=== PATIENT | male | born 1960 | race Caucasian/White ===

== ENCOUNTER → 2016-05-23 | Outpatient (CLI) | payer OTHER ==
[2016-05-23 12:18] LABS: EKG EKG PERFORMED
[2016-05-23 12:45] LABS: Appearance,Urine Clear (Clear); Bilirubin,Urine Negative (Negative); Glucose,Urine (UA) Negative (Negative); Ketones,Urine Negative (Negative); Leukocyte Esterase,Urine Negative (Negative); Nitrite,Urine Negative (Negative); Protein,Urine Negative (Negative); Specific Gravity,Urine 1.011 (1.001-1.035); UA Billing (MACRO vs. MICRO) CHEM; Urobilinogen,Urine <2.0 mg/dL (<2.0)
[2016-05-23 12:56] LABS: Basophils % (A) 1 %; CH 30.6; CHCM 35.3; Eosinophils # (A) 0.2 k/uL (0-0.7); Eosinophils % (A) 3 %; HCT 45.8 % (39.0-53.0); HDW 2.77; HGB 15.7 gm/dL (13.0-17.5); Luc # (Auto) 0.19; Luc % (Auto) 3; Lymphocytes # (A) 1.4 k/uL (1.0-4.8); Lymphocytes % (A) 24 %; MCHC 34.4 g/dL (31.0-37.0); MCV 87.2 fL (80.0-100.0); Mean Platelet Volume 7.7; Monocytes # (A) 0.5 k/uL (0-1.0); Monocytes % (A) 8 %; Neutrophils # (A) 3.8 k/uL (1.3-7.7); Neutrophils % (A) 63 %; RBC 5.25 m/uL (4.30-5.90); RDW 12.7 % (11.5-15.5); WBC (Perox) 6.29
[2016-05-23 13:03] LABS: Partial Thromboplastin Time 24.9 sec (22.0-30.0); Prothrombin Time 10.5 sec (9.0-12.0)
[2016-05-23 13:16] LABS: ALT 64 U/L (21-72); AST 41 U/L (17-59); Alkaline Phosphatase 91 U/L (38-126); Anion Gap 13 mmol/L; Blood Urea Nitrogen 16 mg/dL (9-20); Carbon Dioxide 33 mmol/L (22-30); Chloride 100 mmol/L (98-107); Glucose 111 mg/dL (74-99); Non-African American GFR(MDRD) >60 (>60 ml/min/1.73 sqM); Potassium 4.7 mmol/L (3.5-5.1); Sodium 146 mmol/L (137-145); Total Bilirubin 0.8 mg/dL (0.2-1.3); Total Protein 7.9 g/dL (6.3-8.2)
== END | disposition home or self-care (01) ==
LOC: LABPAT 12:07
PROVIDERS: ATTEND Orthopaedic Surgery
DX: Z01.810 Encounter for preprocedural cardiovascular examination (principal); Z01.812 Encounter for preprocedural laboratory examination
CPT/HCPCS: 80053; 81003; 85025; 85610; 85730; 87070; 93005

== ENCOUNTER 2016-05-29 18:20 | Inpatient (IN) | payer OTHER ==
[2016-05-29] MEDS ORDERED: ACETAMINOPHEN TAB 500 MG TAB PO STA (19:50)
[2016-05-29] MEDS ORDERED: SODIUM CHLORIDE 0.9% 1,000 ML IV ONE (19:59)
[2016-05-29] MEDS ORDERED: ONDANSETRON 4 MG/2 ML VIAL IVP STA (20:00)
--- NOTE | 2016-05-29 20:05 | ED ---
Fever HPI <Francisco Javier Puente - Last Filed: 05/29/16 23:14> - General Source: patient, RN notes reviewed Mode of arrival: wheelchair Limitations: no limitations <Gali Taveras - Last Filed: 05/30/16 02:49> - General Chief Complaint: Fever Stated Complaint: FLU LIKE SYMPTOMS Time Seen by Provider: 05/29/16 19:33 - History of Present Illness Initial Comments: Patient is a 55-year-old male presents to the emergency room for evaluation of fever and body aches. Patient states she began feeling nauseous with abdominal pain about 3 days ago. Patient states that he hasn't sleeping for the past 2 days straight. Patient states he's having all over body aches. Patient denies sinus congestion, throat pain, ear pain, cough. Patient's states that she gave patient Tylenol around noon. Patient's states that patient has been laying around for the past few days and is worrying the family. Patient does state he began developing lower abdominal cramping with diarrhea today. Patient denies recent travels out of the country. Patient denies trying new foods. Patient denies receiving his influenza vaccine. (Gali Taveras) - Related Data Home Medications Medication Instructions Recorded Confirmed Omeprazole 20 mg PO DAILY 09/06/15 05/29/16 Naproxen 500 mg PO Q12HR PRN 05/24/16 05/29/16 Allergies Allergy/AdvReac Type Severity Reaction Status Date / Time No Known Allergies Allergy Verified 05/29/16 20:27 Review of Systems ROS Other: All systems not noted in ROS Statement are negative. <Francisco Javier Puente - Last Filed: 05/29/16 23:14> ROS Other: All systems not noted in ROS Statement are negative. <Gali Taveras - Last Filed: 05/30/16 02:49> ROS Statement: Those systems with pertinent positive or pertinent negative responses have been documented in the HPI. Past Medical History Past Medical History: Musculoskeletal Disorder History of Any Multi-Drug Resistant Organisms: None Reported Past Surgical History: No Surgical Hx Reported Past Anesthesia/Blood Transfusion Reactions: Unable to Obtain Additional Past Anesthesia/Blood Transfusion Reaction / Comment(s): no surg. Past Psychological History: No Psychological Hx Reported Smoking Status: Former smoker Past Alcohol Use History: None Reported Past Drug Use History: None Reported - Past Family History Mother Family Medical History: No Reported History Father Additional Family Medical History / Comment(s): Heart murmur <Gali Taveras - Last Filed: 05/30/16 02:49> General Exam <Francisco Javier Puente - Last Filed: 05/29/16 23:14> Limitations: no limitations General appearance: alert, in no apparent distress Head exam: Present: atraumatic, normocephalic, normal inspection Eye exam: Present: normal appearance Pupils: Present: normal accommodation ENT exam: Present: normal exam Neck exam: Present: normal inspection Respiratory exam: Present: normal lung sounds bilaterally. Absent: respiratory distress Cardiovascular Exam: Present: regular rate, normal rhythm, normal heart sounds GI/Abdominal exam: Present: soft, normal bowel sounds. Absent: distended, tenderness, guarding, rebound, rigid Extremities exam: Present: normal inspection Back exam: Present: normal inspection Neurological exam: Present: alert, oriented X3 Psychiatric exam: Present: normal affect, normal mood Skin exam: Present: warm, dry, intact, normal color. Absent: rash <Gali Taveras - Last Filed: 05/30/16 02:49> - General Exam Comments Initial Comments: Laying in exam room, looks uncomfortable secondary to not feeling well. No acute distress. (Gali Taveras) Medical Decision Making - Lab Data Result diagrams: 05/29/16 20:12 05/29/16 20:12 <Francisco Javier uPente - Last Filed: 05/29/16 23:14> - Lab Data Result diagrams: 05/29/16 20:12 05/29/16 20:12 - Radiology Data Radiology results: report reviewed, image reviewed <Gali Taveras - Last Filed: 05/30/16 02:49> - Medical Decision Making Patient reexamined and resting comfortably in bed. Patient still feels fatigued and not well. Patient has continued temperature despite IV fluid bolus and Tylenol and Motrin. Questionable urinary tract infection. Case discussed in detail with Dr. Tracy, who will admit for Dr. Mckinley. Patient updated. Patient is a 55-year-old male since emergency room for evaluation of fever. Patient is rehydrated with IV fluids. Patient was given Tylenol and Motrin for fever. Patient continues to have a fever and still not feeling well. Urinalysis suspicious for urinary tract infection. Culture is pending. Case discussed with Dr. Puente. Dr. Puente also evaluated patient and discussed patient with Dr. Pierce. Dr. Pierce agreed to admit patient. (Gali Taveras) - Lab Data Lab Results 05/29/16 05/29/16 05/29/16 Range/Units 19:42 20:12 20:12 WBC 11.2 H (3.8-10.6) k/uL RBC 5.50 (4.30-5.90) m/uL Hgb 16.5 (13.0-17.5) gm/dL Hct 47.8 (39.0-53.0) % MCV 87.0 (80.0-100.0) fL MCH 30.1 (25.0-35.0) pg MCHC 34.6 (31.0-37.0) g/dL RDW 12.9 (11.5-15.5) % Plt Count 143 L (150-450) k/uL Neutrophils % 87 % Lymphocytes % 4 % Monocytes % 7 % Eosinophils % 1 % Basophils % 0 % Neutrophils # 9.7 H (1.3-7.7) k/uL Lymphocytes # 0.5 L (1.0-4.8) k/uL Monocytes # 0.8 (0-1.0) k/uL Eosinophils # 0.1 (0-0.7) k/uL Basophils # 0.0 (0-0.2) k/uL Sodium 140 (137-145) mmol/L Potassium 3.6 (3.5-5.1) mmol/L Chloride 100 (98-107) mmol/L Carbon Dioxide 24 (22-30) mmol/L Anion Gap 16 mmol/L BUN 21 H (9-20) mg/dL Creatinine 1.50 H (0.66-1.25) mg/dL Est GFR (MDRD) Af Amer 59 (>60 ml/min/1.73 sqM) Est GFR (MDRD) Non-Af 49 (>60 ml/min/1.73 sqM) Glucose 176 H (74-99) mg/dL Calcium 9.2 (8.4-10.2) mg/dL Total Bilirubin 1.6 H (0.2-1.3) mg/dL AST 43 (17-59) U/L ALT 56 (21-72) U/L Alkaline Phosphatase 85 (38-126) U/L Total Protein 6.9 (6.3-8.2) g/dL Albumin 4.3 (3.5-5.0) g/dL Amylase <30 L (30-110) U/L Lipase 46 (23-300) U/L Urine Color Urine Appearance (Clear) Urine pH (5.0-8.0) Ur Specific Pedro (1.001-1.035) Urine Protein (Negative) Urine Glucose (UA) (Negative) Urine Ketones (Negative) Urine Blood (Negative) Urine Nitrate (Negative) Urine Bilirubin (Negative) Urine Urobilinogen (<2.0) mg/dL Ur Leukocyte Esterase (Negative) Urine RBC (0-5) /hpf Urine WBC (0-5) /hpf Urine Bacteria (None) /hpf Cellular Casts (0) /lpf Hyaline Casts (0-2) /lpf WBC Casts (0) /lpf Urine Mucus (None) /hpf Influenza Type A RNA Not Detected (Not Detectd) Influenza Type B (PCR) Not Detected (Not Detectd) 05/29/16 Range/Units 22:05 WBC (3.8-10.6) k/uL RBC (4.30-5.90) m/uL Hgb (13.0-17.5) gm/dL Hct (39.0-53.0) % MCV (80.0-100.0) fL MCH (25.0-35.0) pg MCHC (31.0-37.0) g/dL RDW (11.5-15.5) % Plt Count (150-450) k/uL Neutrophils % % Lymphocytes % % Monocytes % % Eosinophils % % Basophils % % Neutrophils # (1.3-7.7) k/uL Lymphocytes # (1.0-4.8) k/uL Monocytes # (0-1.0) k/uL Eosinophils # (0-0.7) k/uL Basophils # (0-0.2) k/uL Sodium (137-145) mmol/L Potassium (3.5-5.1) mmol/L Chloride (98-107) mmol/L Carbon Dioxide (22-30) mmol/L Anion Gap mmol/L BUN (9-20) mg/dL Creatinine (0.66-1.25) mg/dL Est GFR (MDRD) Af Amer (>60 ml/min/1.73 sqM) Est GFR (MDRD) Non-Af (>60 ml/min/1.73 sqM) Glucose (74-99) mg/dL Calcium (8.4-10.2) mg/dL Total Bilirubin (0.2-1.3) mg/dL AST (17-59) U/L ALT (21-72) U/L Alkaline Phosphatase (38-126) U/L Total Protein (6.3-8.2) g/dL Albumin (3.5-5.0) g/dL Amylase (30-110) U/L Lipase (23-300) U/L Urine Color Light Brown Urine Appearance Cloudy (Clear) Urine pH 5.5 (5.0-8.0) Ur Specific [place] 1.030 (1.001-1.035) Urine Protein 2+ H (Negative) Urine Glucose (UA) Trace H (Negative) Urine Ketones Negative (Negative) Urine Blood Small H (Negative) Urine Nitrate Negative (Negative) Urine Bilirubin 1+ H (Negative) Urine Urobilinogen 2.0 (<2.0) mg/dL Ur Leukocyte Esterase Negative (Negative) Urine RBC 5 (0-5) /hpf Urine WBC 5 (0-5) /hpf Urine Bacteria Many H (None) /hpf Cellular Casts 32 (0) /lpf Hyaline Casts 27 H (0-2) /lpf WBC Casts 3 (0) /lpf Urine Mucus Few H (None) /hpf Influenza Type A RNA (Not Detectd) Influenza Type B (PCR) (Not Detectd) Disposition <Francisco Javier Puente - Last Filed: 05/29/16 23:14> Decision Date: 05/29/16 <Gali Taveras - Last Filed: 05/30/16 02:49> Clinical Impression: Fever, Urinary tract infection Disposition: ADMITTED IP TO THIS HOSP Condition: Stable
[2016-05-29 20:25] LABS: Basophils % (A) 0 %; CH 30.8; CHCM 35.5; Eosinophils # (A) 0.1 k/uL (0-0.7); Eosinophils % (A) 1 %; HCT 47.8 % (39.0-53.0); HDW 2.63; HGB 16.5 gm/dL (13.0-17.5); Luc # (Auto) 0.16; Luc % (Auto) 2; Lymphocytes # (A) 0.5 k/uL (1.0-4.8); Lymphocytes % (A) 4 %; MCH 30.1 pg (25.0-35.0); MCHC 34.6 g/dL (31.0-37.0); Mean Platelet Volume 7.5; Monocytes # (A) 0.8 k/uL (0-1.0); Monocytes % (A) 7 %; Neutrophils # (A) 9.7 k/uL (1.3-7.7); Neutrophils % (A) 87 %; RDW 12.9 % (11.5-15.5); WBC 11.2 k/uL (3.8-10.6); WBC (Perox) 11.68
--- NOTE | 2016-05-29 20:37 | XR ---
EXAMINATION TYPE: XR chest 2V DATE OF EXAM: 05/29/2016 8:28 PM COMPARISON: NONE HISTORY: Pain, fever and nausea TECHNIQUE: Frontal and lateral views of the chest are obtained. FINDINGS: Lung volumes are low. Heart size is prominent although patient is rotated. Central vascula rity is increased. No evident pneumothorax or pleural effusion. Perihilar increased density is noted. IMPRESSION: Expiratory rotated exam. Difficult to exclude pulmonary venous hypertension and intersti tial edema, perihilar airspace disease, correlate, follow-up recommended
[2016-05-29 20:39] LABS: ALT 56 U/L (21-72); AST 43 U/L (17-59); Alkaline Phosphatase 85 U/L (38-126); Amylase <30 U/L (30-110); Anion Gap 16 mmol/L; Blood Urea Nitrogen 21 mg/dL (9-20); Calcium 9.2 mg/dL (8.4-10.2); Carbon Dioxide 24 mmol/L (22-30); Chloride 100 mmol/L (98-107); Glucose 176 mg/dL (74-99); Non-African American GFR(MDRD) 49 (>60 ml/min/1.73 sqM); Potassium 3.6 mmol/L (3.5-5.1); Sodium 140 mmol/L (137-145); Total Bilirubin 1.6 mg/dL (0.2-1.3); Total Protein 6.9 g/dL (6.3-8.2)
[2016-05-29] MEDS ORDERED: IBUPROFEN 600 MG TAB PO STA (21:33)
[2016-05-29] MEDS ORDERED: SODIUM CHLORIDE 0.9% 1,000 ML IV STA (22:10)
[2016-05-29 22:28] LABS: Appearance,Urine Cloudy (Clear); Bacteria,Urine Many /hpf; Bilirubin,Urine 1+ (Negative); Glucose,Urine (UA) Trace (Negative); Ketones,Urine Negative (Negative); Leukocyte Esterase,Urine Negative (Negative); Mucus,Urine Few /hpf; Nitrite,Urine Negative (Negative); PH, Urine 5.5 (5.0-8.0); Particle Count 18435; Protein,Urine 2+ (Negative); RBC,Urine 5 /hpf (0-5); UA Billing (MACRO vs. MICRO) MICRO; WBC,Urine 5 /hpf (0-5)
[2016-05-29] MEDS ORDERED: NALOXONE 0.4 MG/ML 1 ML VIAL IV PRN (23:14)
[2016-05-29] MEDS ORDERED: ONDANSETRON 4 MG/2 ML VIAL IVP PRN (23:14)
[2016-05-29] MEDS ORDERED: IBUPROFEN 600 MG TAB PO PRN (23:14)
[2016-05-29] MEDS: MORPHINE SULFATE 4 MG/ML SYRINGE IV PRN (23:39)
[2016-05-29] MEDS: SODIUM CHLORIDE 0.9% 1,000 ML IV SCH (23:41)
[2016-05-30] MEDS: SODIUM CHLORIDE 0.9% 1,000 ML IV SCH ×2 (05:12→19:53)
[2016-05-30] MEDS: ACETAMINOPHEN TAB 325 MG TAB PO PRN ×2 (07:26→19:50)
[2016-05-30] MEDS: PANTOPRAZOLE 40 MG TABLET PO SCH (14:16)
--- NOTE | 2016-05-30 19:07 | XR ---
EXAMINATION TYPE: XR chest 1V DATE OF EXAM: 05/30/2016 5:15 PM COMPARISON: May 29, 2016 HISTORY: Fever, UTI TECHNIQUE: Single frontal view of the chest is obtained. FINDINGS: On the current study there is no focal air space opacity, pleural effusion, or pneumothora x seen. There is a band of added opacity in the right infrahilar position, likely atelectasis. The ca rdiac silhouette size is within normal limits. The osseous structures are intact. IMPRESSION: No current acute process, consistent with interval improvement since the prior study.
--- NOTE | 2016-05-30 19:52 | HP ---
DATE OF ADMISSION: Patient is a 55-year-old gentleman who came in with complaints of fever that has been going up for 2 days with flu-like symptoms of body aches. Patient became nauseous; did throw up. Two days ago patient had epigastric abdominal burning sensation consistent with gastritis. Patient does take NSAID for pain along with Prilosec. Patient denied any dysuria. Patient denied any suprapubic pain, abdominal pain. The urine showed minimal abnormality. Patient does not have any benign prostatic hypertrophy, does not have a Loza catheter in place. Denied any cough, runny nose. Patient is admitted for possible urinary tract infection. He was given Rocephin. I continued the dose of it here, although there is no clear-cut evidence that patient has any source of infection at this point of time except for viral illness. Flu testing is ( ). ROS: All other systems were reviewed and were negative. Past medical history is significant for chronic low back pain. SURGICAL HISTORY: None. SOCIAL HISTORY: Former smoker; quit smoking years ago. Denied any alcohol abuse or any drug abuse. FAMILY HISTORY: No significant family history was reported by the patient. Patient denied ( ) history hypertension, diabetes mellitus, coronary artery disease. Home medications include omeprazole and naproxen. PHYSICAL EXAMINATION: VITAL SIGNS: Temperature 98.4. Patient's 24-hour T-max is 102.3. Pulse of 78, respiratory rate 20. Blood pressure is 128/85. Saturating at 96% on room air. GENERAL: The patient is alert and oriented x3, not in any acute distress. Well developed, well nourished. HEENT: Pupils are round and equally reacting to light. EOMI. No scleral icterus. No conjunctival pallor. Normocephalic, atraumatic. No pharyngeal erythema. No thyromegaly. CARDIOVASCULAR: S1 and S2 present. No murmurs, rubs, or gallops. PULMONARY: Chest is clear to auscultation, no wheezing or crackles. ABDOMEN: Soft, nontender, nondistended, normoactive bowel sounds. No palpable organomegaly. MUSCULOSKELETAL: No joint swelling or deformity. EXTREMITIES: No cyanosis, clubbing, or pedal edema. NEUROLOGICAL: Gross neurological examination did not reveal any focal deficits. SKIN: No rashes. LABORATORY DATA: CBC, CMP are abnormal for ( ) 11,200, hemoglobin of 16.5, creatinine of 1.50. Patient is getting IV fluids at this point of time at 100 mL/hour. Chest x-ray did not show any pneumonic process. ASSESSMENT AND PLAN: 1. Fever and signs of sepsis, although source is unknown clearly. Source of sepsis is probably viral gastrointestinal illness. Patient is dehydrated ( ) patient has acute renal failure secondary to that. Chest x-ray is a rotated exam, because of which I will repeat the chest x-ray. Patient will continue with Rocephin. Urine, although a bit abnormal with many bacteria, my suspicion is low for urinary tract infection, as patient does not have any symptoms and patient does not have any benign prostatic hypertrophy. I cannot completely rule out bacterial ( ), because of which I will go ahead and continue Rocephin. The most probable source of infection is viral gastroenteritis. 2. Dehydration leading to acute renal failure. IV fluids, as mentioned above. 3. Fever secondary to viral illness. 4. Possible gastritis. Patient was asked not to take NSAIDs. Patient can take tramadol if needed. We will monitor him overnight. Continue with IV fluids. Repeat electrolytes and basic metabolic profile along with CBC tomorrow. If patient is afebrile, patient will be discharged tomorrow. I will repeat the chest x-ray because of above-mentioned reason. Patient's primary care physician is Dr. Bryanna Mckinley. MANJU
[2016-05-30] MEDS ORDERED: INFLUENZA VACCINE (3YR+) 60 MCG/0.5 ML SYRINGE IM ONE (20:45)
[2016-05-30] MEDS ORDERED: ACETAMINOPHEN IV (For NPO) 1,000 MG in EMPTY BAG 1 BAG IVPB ONE (23:03)
[2016-05-31] MEDS: SODIUM CHLORIDE 0.9% 1,000 ML IV SCH ×2 (05:39→15:06)
[2016-05-31] MEDS: PANTOPRAZOLE 40 MG TABLET PO SCH (08:16)
[2016-05-31] MEDS: ACETAMINOPHEN TAB 325 MG TAB PO PRN ×2 (08:29→22:44)
[2016-05-31] MEDS ORDERED: IBUPROFEN 600 MG TAB PO STA (10:34)
[2016-05-31 11:38] LABS: Anion Gap 9 mmol/L; Blood Urea Nitrogen 14 mg/dL (9-20); Calcium 8.2 mg/dL (8.4-10.2); Carbon Dioxide 29 mmol/L (22-30); Chloride 102 mmol/L (98-107); Glucose 164 mg/dL (74-99); Non-African American GFR(MDRD) >60 (>60 ml/min/1.73 sqM); Potassium 3.9 mmol/L (3.5-5.1); Sodium 140 mmol/L (137-145)
[2016-05-31 11:41] LABS: Basophils % (A) 1 %; CH 30.3; CHCM 34.8; Eosinophils % (A) 1 %; HCT 39.6 % (39.0-53.0); HGB 13.2 gm/dL (13.0-17.5); Luc # (Auto) 0.15; Luc % (Auto) 4; Lymphocytes # (A) 0.5 k/uL (1.0-4.8); Lymphocytes % (A) 13 %; MCH 29.2 pg (25.0-35.0); MCHC 33.4 g/dL (31.0-37.0); MCV 87.4 fL (80.0-100.0); Mean Platelet Volume 9.4; Monocytes # (A) 0.3 k/uL (0-1.0); Monocytes % (A) 8 %; Neutrophils # (A) 2.6 k/uL (1.3-7.7); Neutrophils % (A) 73 %; RBC 4.53 m/uL (4.30-5.90); RDW 12.9 % (11.5-15.5); WBC 3.5 k/uL (3.8-10.6)
[2016-05-31 13:31] LABS: Basophils % (A) 0 %; CH 30.3; CHCM 34.5; Eosinophils # (A) 0.1 k/uL (0-0.7); Eosinophils % (A) 2 %; HCT 41.9 % (39.0-53.0); Luc # (Auto) 0.16; Luc % (Auto) 4; Lymphocytes # (A) 0.7 k/uL (1.0-4.8); Lymphocytes % (A) 19 %; MCH 29.5 pg (25.0-35.0); MCHC 33.5 g/dL (31.0-37.0); MCV 88.1 fL (80.0-100.0); Mean Platelet Volume 8.9; Monocytes # (A) 0.4 k/uL (0-1.0); Monocytes % (A) 9 %; Neutrophils # (A) 2.6 k/uL (1.3-7.7); Neutrophils % (A) 66 %; RBC 4.76 m/uL (4.30-5.90); RDW 12.8 % (11.5-15.5); WBC 3.9 k/uL (3.8-10.6); WBC (Perox) 3.97
--- NOTE | 2016-05-31 16:14 | P.PN ---
Subjective Date Of service 05/31/2016 Progress note being dictated for Dr. Dean. Interval history: This Is a 55-year-old gentleman admitted with fever, signs of sepsis, etiology unclear, acute renal failure, possible gastritis and multiple other medical issues. Remains febrile with T-max of 102.5. Maintained on empiric Rocephin and IV fluid hydration. Renal function improved, WBC dropped with repeat CBC pending. Diarrhea has subsided. Diet intake improved, consuming 50-100%. Denies nausea or vomiting. Denies chest pain, palpitations or increasing shortness of breath. Complains of generalized achiness/soreness. Objective - Vital Signs Vital signs: Vital Signs Temp 98.0 F 05/31/16 15:00 Pulse 67 05/31/16 15:00 Resp 20 05/31/16 15:00 BP 124/75 05/31/16 15:00 Pulse Ox 97 05/31/16 15:00 Intake & Output 05/30/16 05/31/16 05/31/16 18:59 06:59 18:59 Intake Total 900 300 Balance 900 300 Intake: Intake, IV Titration 900 Amount Sodium Chloride 0.9% 1, 800 000 ml @ 100 mls/hr IV . Q10H FREDY Rx#:[id number] cefTRIAXone 1,000 mg In 100 Sodium Chloride 0.9% 50 ml @ 100 mls/hr IVPB Q24HR FREDY Rx#:[id number] Oral 300 Other: Voiding Method Toilet # Voids 3 - Exam PHYSICAL EXAM: VITAL SIGNS: As above GENERAL: [Sitting up at side of bed no acute distress] HEENT: [Pupils equal conjunctiva normal.] NECK: [Supple, no JVD] RESPIRATORY EFFORT:[Normal] LUNGS: [Clear to auscultation, no crackles, no wheezing, no rhonchi] CARDIOVASCULAR[regular S1 and S2, no murmurs rubs or gallops, no edema] GI: [Abdomen soft, nontender, nondistended, positive bowel sounds.] PSYCH: [Alert and oriented -3, mood and affect normal.] NEURO: No focal deficits, moves all 4 extremities, strength and sensation grossly intact. - Labs CBC & Chem 7: 05/31/16 12:57 05/31/16 10:52 Labs: Abnormal Lab Results - Last 24 Hours (Table) 01/05/31/16 05/31/16 Range/Units 10:52 10:52 12:57 WBC 3.5 L (3.8-10.6) k/uL Plt Count 91 L 93 L (150-450) k/uL Lymphocytes # 0.5 L 0.7 L (1.0-4.8) k/uL Glucose 164 H (74-99) mg/dL Calcium 8.2 L (8.4-10.2) mg/dL Microbiology - Last 24 Hours (Table) 05/30/16 08:45 Blood Culture - Preliminary Blood No Growth after 24 hours Assessment and Plan Plan: 1. [Fever with signs of sepsis, etiology unclear, possibly viral gastrointestinal, in addition to patient being dehydrated with acute renal failure]. Urine culture negative .suspect viral illness. 2. [Acute renal failure secondary to dehydration improving with IV fluid hydration]. 3. C. difficile ruled out. Plan: Continue on current medication regime ,monitoring and symptomatic treatment. Persistent fevers, infectious disease consulted. Maintain IV fluid hydration and empiric antibiotics. Repeat CBC pending given significant drop in WBC. Close monitoring of electrolytes and renal function with repeat labs ordered for a.m. discharge planning in progress once afebrile for 24 hours. The impression and plan of care has been dictated as directed. : I performed a H&P examination of this patient and discussed the same with the dictator. I agree with the dictator's note. Any additional findings/opinions/ etc. will be noted.
[2016-05-31] MEDS: POTASSIUM CHLORIDE ER 20 MEQ TAB.ER PO STA ×2 (16:27→17:00)
--- NOTE | 2016-05-31 20:56 | XR ---
EXAMINATION TYPE: XR Hip Complete RT DATE OF EXAM: 05/31/2016 8:44 PM COMPARISON: NONE HISTORY: Right hip pain TECHNIQUE: 2 views FINDINGS: There is severe narrowing of the hip joint space. There are subchondral cystic change in th e acetabulum. I see no fracture. Sacroiliac joint appears normal. IMPRESSION: Severe narrowing of right hip joint space with degenerative cystic changes in the acetabu lum. There is no significant spur formation and this could relate to inflammatory arthritis. No fract ure seen.
[2016-05-31] MEDS: IOHEXOL 350 MG/ML 25 ML BOTTLE (ORAL USE) PO PRN ×2 (20:58→22:05)
--- NOTE | 2016-05-31 22:06 | CONS ---
DATE OF CONSULTATION: 05/31/2016 REASON FOR CONSULTATION: Fever. HISTORY OF PRESENT ILLNESS: The patient is a 55-year-old male with a past medical history significant for osteoarthritis of his hip, for which the patient is scheduled to get a replacement next week. Patient started having a fever on Friday; that is 2 days prior to presentation to the hospital. The patient did have rigors and chills associated with it. Patient felt nauseated and had diarrhea associated with it with multiple loose stools, but no significant vomiting and no abdominal pain. The patient denies having any blood or mucus in the stool. No other family member was sick with a similar illness. He did not recall taking any antibiotic therapy in the recent past. When symptoms continued to get worse over the next 2 days, he presented to the [facility] ER, where the patient was evaluated by the ER physician. The patient did have an x-ray both on May 29 as well as May 30. Those were negative. The patient had a fever of 101 to 102 on May 29, May 30, and did spike a fever of 102.5 degrees Fahrenheit this morning. That prompted an ID consultation. As far as the workup so far, the patient did have a slightly evaluated white count on admission as well as slightly elevated BUN and creatinine. The urine was not significantly positive. The patient did have stool for C difficile that was negative. Influenza PCR was negative. The patient denies any worsening pain in the right hip area, though. As far as his GI symptoms, especially the diarrhea, that has resolved. No significant urinary symptoms of burning, frequency or difficult urination. REVIEW OF SYSTEMS: CONSTITUTIONAL: Positive for weakness along with a fever. EYES: No complaint. ENT: No complaint. RESPIRATORY: No complaint. CARDIOVASCULAR: No complaint. GENITOURINARY: No complaint. GASTROINTESTINAL: As per HPI. MUSCULOSKELETAL: As per HPI. INTEGUMENTARY: No complaint. PSYCHOLOGIC: No complaint. ENDOCRINE: No complaint. NEUROLOGICAL: No complaint. PAST MEDICAL HISTORY: Bilateral hip osteoarthritis. No other medical illness. PAST SURGICAL HISTORY: No surgeries. SOCIAL HISTORY: Former smoker. 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 FAMILY HISTORY: No pertinent findings were noticed. ALLERGIES: NO KNOWN DRUG ALLERGIES. Medications currently include: 1. Tylenol. 2. [place]. 3. Rocephin. 4. Narcan. 5. Zofran. 6. Protonix. 7. IV fluids. On examination, blood pressure is 124/75 with a pulse of 67, temperature 98, T-max 102.5. He is 97% on room air. General description is a middle-aged male lying in bed in no distress. No tachypnea or accessory muscle of respiration use. HEENT examination shows no pallor or scleral icterus. Oral mucous membrane is dry. No significant erythema or thrush. NECK: Trachea is central. No thyromegaly. LUNGS: Unlabored breathing. Clear to auscultation. No wheeze or crackle. HEART: S1, S2. Regular rate and rhythm. ABDOMEN: Soft. No tenderness. No guarding or rigidity. EXTREMITIES: No edema of the feet. MUSCULOSKELETAL: Right hip with no swelling, no redness and no tenderness. SKIN EXAMINATION: No rash or mass palpable. Neurologically the patient is awake, alert, oriented x3. Mood and affect normal. LABS: Hemoglobin is 14 with a white count of 3.9. BUN of 14, creatinine 1.10. Electrolytes have been normal. Bilirubin was slightly elevated at 1.6 on admission. The rest of the liver enzymes were normal. Urine is not significantly positive. Serology for C difficile as well as the influenza PCR was negative. DIAGNOSTIC IMPRESSION AND PLAN: Patient admitted to hospital with a fever and elevated white count meeting criteria for systemic inflammatory response syndrome. However, no definite clinical focus of infection. The patient does have predominant GI symptoms that have resolved by now. The patient also has some element of thrombocytopenia and slightly elevated bilirubin; hence underlying viral illness to be more likely the etiology of his fever, though in view of GI symptoms initially, it maybe pertinent to rule out any abdominal source. PLAN: 1. We recommend obtaining a CT of abdomen and pelvis with oral contrast only. Avoid IV contrast, as the patient had slightly elevated creatinine on admission. 2. Obtain x-rays of his right hip. 3. Continue the empiric Rocephin. 4. Will follow up on his clinical condition and cultures to further adjust medication if needed. Thank you for this consultation. Will follow this patient along with you. Family present at beside. Their questions were answered.
--- NOTE | 2016-05-31 22:50 | CT ---
EXAMINATION TYPE: CT abdomen pelvis wo con DATE OF EXAM: 05/31/2016 10:41 PM COMPARISON: NONE HISTORY: Pt states of fever and abdominal pain. CT DLP: 936.3 mGycm Automated exposure control for dose reduction was used. TECHNIQUE: Helical acquisition of images was performed from the lung bases through the pelvis. FINDINGS: There is some linear infiltrate and atelectasis in the right lower lobe. There is no definite pleural effusion. Heart size is normal. Liver and spleen appear normal. Bile ducts are not dilated. There is no pancreatic mass. There is katty y mild edema around the gallbladder. There is no adrenal mass. Kidneys have normal size and contour. There is no hydronephrosis. Ureters a re not dilated. There is no retroperitoneal adenopathy. There is no ascites. There are a few divertic main in the sigmoid colon. Bladder distends smoothly. There is no pelvic mass. There is no ascites. I see no bony destructive process. IMPRESSION: THERE IS MILD INFILTRATE AND ATELECTASIS IN THE RIGHT LOWER LOBE. MILD EDEMA AROUND THE GALLBLADDER THAT MAY INDICATE ACUTE CHOLECYSTITIS. NO DILATED DUCTS.
[2016-06-01] MEDS: SODIUM CHLORIDE 0.9% 1,000 ML IV SCH ×3 (02:22→16:40)
[2016-06-01 07:28] LABS: CH 30.2; HCT 37.7 % (39.0-53.0); HDW 2.98; HGB 12.8 gm/dL (13.0-17.5); MCH 29.4 pg (25.0-35.0); MCV 86.6 fL (80.0-100.0); Mean Platelet Volume 9.5; RBC 4.35 m/uL (4.30-5.90); RDW 12.9 % (11.5-15.5); WBC 4.4 k/uL (3.8-10.6)
[2016-06-01 07:37] LABS: Anion Gap 9 mmol/L; Blood Urea Nitrogen 12 mg/dL (9-20); Calcium 8.3 mg/dL (8.4-10.2); Carbon Dioxide 29 mmol/L (22-30); Chloride 104 mmol/L (98-107); Glucose 112 mg/dL (74-99); Non-African American GFR(MDRD) >60 (>60 ml/min/1.73 sqM); Potassium 3.7 mmol/L (3.5-5.1); Sodium 142 mmol/L (137-145)
[2016-06-01] MEDS: PANTOPRAZOLE 40 MG TABLET PO SCH (07:53)
[2016-06-01] MEDS ORDERED: cefTRIAXone 2,000 MG in SODIUM CHLORIDE 0.9% 100 ML IVPB SCH (09:00)
[2016-06-01] MEDS ORDERED: metroNIDAZOLE-NS PMX 500 MG in SALINE 1 100ML.BAG IVPB SCH (16:00)
--- NOTE | 2016-06-01 16:07 | PN ---
A 55-year-old admitted with fever and sepsis. Source is unknown. Patient is on Rocephin. I will add metronidazole because the patient has abdominal CT which was suspicious for cholecystitis, although patient's Benavides sign is negative. Patient does not have any abdominal pain. I will obtain a HIDA scan. If it is positive, will consult Surgery. REVIEW OF SYSTEMS: CARDIOVASCULAR: No chest pain, no orthopnea, no PND, no palpitations. PULMONARY: Denied any shortness of breath. No cough or hemoptysis. GASTROINTESTINAL: No diarrhea, nausea or vomiting. No abdominal pain. Normoactive bowel sounds. NEUROLOGIC: No headaches, no weakness, no numbness. Medications were reviewed. PHYSICAL EXAMINATION: Temperature 99.5, pulse of 78, respiratory rate 19, blood pressure is 141/81, saturating at 96% on room air. GENERAL: The patient is alert and oriented x3, not in any acute distress. Well developed, well nourished. HEENT: Pupils are round and equally reacting to light. EOMI. No scleral icterus. No conjunctival pallor. Normocephalic, atraumatic. No pharyngeal erythema. No thyromegaly. CARDIOVASCULAR: S1 and S2 present. No murmurs, rubs, or gallops. PULMONARY: Chest is clear to auscultation, no wheezing or crackles. ABDOMEN: Soft, nontender, nondistended, normoactive bowel sounds. No palpable organomegaly. MUSCULOSKELETAL: No joint swelling or deformity. EXTREMITIES: No cyanosis, clubbing, or pedal edema. NEUROLOGICAL: Gross neurological examination did not reveal any focal deficits. SKIN: No rashes. LABORATORY DATA: Leukocytosis completely resolved. The rest of the labs are essentially within normal limits. ASSESSMENT AND PLAN: 1. Fever, unclear etiology. Possibility of cholecystitis. Management as mentioned above. 2. Acute renal failure secondary to dehydration, with improved creatinine. 3. Possibility of viral gastrointestinal illness that is contributing to his symptoms. Although his fever has been going on for more than a week. Continue with IV fluids. Further management as mentioned in the interval history.
[2016-06-01] MEDS: AMPICILLIN-SULBACTAM 3 GM in SODIUM CHLORIDE 0.9% 100 ML IVPB SCH ×2 (17:42→23:00)
--- NOTE | 2016-06-01 17:57 | NM ---
EXAMINATION TYPE: NM hepatobiliary wo EF DATE OF EXAM: 06/01/2016 5:49 PM COMPARISON: Correlation CT 05/31/2016 HISTORY: 55-year-old male with pain, possible cholecystitis TECHNIQUE: After the intravenous administration of 5.4 mCi Tc 99m Mebrofenin hepatobiliary scintigrap hy is performed. Immediate images post injection. FINDINGS: There is satisfactory uptake of tracer by the liver. Small bowel is visualized at 6 minutes. Addition al imaging was carried out to 4 hours and there is no visualization of the gallbladder. IMPRESSION: Nonvisualization of the gallbladder at 4 hours. Scintigraphic findings suggest acute cholecystitis.
[2016-06-02] MEDS: AMPICILLIN-SULBACTAM 3 GM in SODIUM CHLORIDE 0.9% 100 ML IVPB SCH ×4 (05:21→23:15)
[2016-06-02] MEDS: PANTOPRAZOLE 40 MG TABLET PO SCH (07:52)
[2016-06-02] MEDS: SODIUM CHLORIDE 0.9% 1,000 ML IV SCH ×2 (08:17→18:22)
--- NOTE | 2016-06-02 12:19 | P.GSCN ---
History of Present Illness Consult date: 06/02/16 Reason for Consult: Fever, possible cholecystitis History of present illness: The patient's a 55-year-old man who had a sudden onset of high fevers, malaise, muscle aches on Friday. He initially thought it was the flu. He was doing so poorly he was brought into the emergency department and admitted. His workup showed no evidence of influenza, pneumonia, UTI, diverticulitis. A computed tomography scan of the abdomen however did show the gallbladder wall to be prominent. A HIDA scan was ordered showing nonvisualization of the gallbladder. He denies any problems with significant heartburn or indigestion. No abdominal pain with eating. No abdominal pain at rest. No nausea or vomiting diarrhea or constipation. He's feeling better today since he hasn't had a high fever. No previous episodes of pain which would be consistent with a "gallbladder attack". He did have a colonoscopy done in August 2015 which showed diverticulosis and a small polyp. Review of Systems - Constitutional Reports as per HPI Past Medical History Past Medical History: Musculoskeletal Disorder Additional Past Medical History / Comment(s): Pt states, "I am scheduled to get hip replacement next week" History of Any Multi-Drug Resistant Organisms: None Reported Past Surgical History: No Surgical Hx Reported Past Anesthesia/Blood Transfusion Reactions: Unable to Obtain Additional Past Anesthesia/Blood Transfusion Reaction / Comm: no surg. Past Psychological History: No Psychological Hx Reported Smoking Status: Former smoker Past Alcohol Use History: None Reported Past Drug Use History: None Reported - Past Family History Mother Family Medical History: No Reported History Additional Family Medical History / Comment(s): Replaced heart valve Father Additional Family Medical History / Comment(s): Heart murmur Medications and Allergies Home Medications Medication Instructions Recorded Confirmed Type Omeprazole 20 mg PO DAILY 09/06/15 05/29/16 History Naproxen 500 mg PO Q12HR PRN 05/24/16 05/29/16 History Allergies Allergy/AdvReac Type Severity Reaction Status Date / Time No Known Allergies Allergy Verified 05/29/16 20:27 Surgical - Exam Osteopathic Statement: *. No significant issues noted on an osteopathic structural exam other than those noted in the History and Physical/Consult. Vital Signs Temp Pulse Resp BP Pulse Ox 101 F H 100 22 172/126 96 05/29/16 19:21 05/29/16 19:21 05/29/16 19:21 05/29/16 19:21 05/29/16 19:21 - General well developed, well nourished, no distress - Eyes normal ocular movement - ENT normal mucosa - Neck no masses, trachea midline, no lymphadectomy - Respiratory normal respiratory effort, clear to auscultation - Cardiovascular Rhythm: regular - Abdomen Abdomen: soft, non tender, bowel sounds, no masses, no guarding, no rigid, no rebound, no distended - Psychiatric oriented to time, oriented to person, oriented to place, speech is normal, memory intact Results - Labs 06/01/16 07:09 06/01/16 07:09 Microbiology - Last 24 Hours (Table) 05/30/16 08:45 Blood Culture - Preliminary Blood No Growth after 72 hours - Imaging CT scan - abdomen: report reviewed, image reviewed Additional studies: HIDA scan showed nonvisualization of the gallbladder at 4 hours. Assessment and Plan (1) Fever Status: Acute Plan: The patient certainly has had an impressive febrile illness. His abdomen however is very benign. He's not having any of the typical symptoms of acute cholecystitis. Repeat liver function tests have been ordered. We'll also get an ultrasound to check and see whether the gallbladder wall is truly thickened and check the size of the bile ducts. Further recommendations to follow.
[2016-06-02 13:26] LABS: ALT 93 U/L (21-72); AST 76 U/L (17-59); Alkaline Phosphatase 87 U/L (38-126); Amylase 46 U/L (30-110); Anion Gap 11 mmol/L; Blood Urea Nitrogen 12 mg/dL (9-20); Calcium 8.7 mg/dL (8.4-10.2); Carbon Dioxide 31 mmol/L (22-30); Chloride 101 mmol/L (98-107); Glucose 123 mg/dL (74-99); Non-African American GFR(MDRD) >60 (>60 ml/min/1.73 sqM); Potassium 3.5 mmol/L (3.5-5.1); Sodium 143 mmol/L (137-145); Total Bilirubin 0.9 mg/dL (0.2-1.3); Total Protein 6.4 g/dL (6.3-8.2)
--- NOTE | 2016-06-02 14:32 | US ---
EXAMINATION TYPE: US abdomen limited DATE OF EXAM: 06/02/2016 2:15 PM COMPARISON: See PACS CLINICAL HISTO RY: .Fever, rule out acute cholecystitis EXAM MEASUREMENTS: Liver Length: 14.3cm Gallbladder Wall: 1.1cm CBD: 0.2cm Right Kidney: 11.1 x 4.6 x 4.7cm RUQ ABDOMINAL ULTRASOUND ANATOMY: TECHNOLOGIST IMPRESSION: Extensive midline bowel gas Pancreas: obscured by overlying midline bowel gas Liver: portions visualized wnl, somewhat obscured by bowel gas Gallbladder: thickened edematous wall, sludge Evidence for sonographic Benavides's sign: no CBD: limited visualization due to overlying bowel gas Right Kidney: lower pole obscured by overlying bowel gas IMPRESSION: There is gallbladder wall thickening consistent with cholecystitis. No dilated ducts. Gal lbladder wall thickening could be increased compared to the CT scan of 05/31/2016.
--- NOTE | 2016-06-02 20:22 | PN ---
Patient is a 55-year-old admitted with fever and sepsis and although patient is completely asymptomatic the patient had abdominal CT and HIDA scan is consistent with cholecystitis and surgery was consulted and they are obtaining an ultrasound of the gallbladder. REVIEW OF SYSTEMS: CARDIOVASCULAR: No chest pain, no orthopnea, no PND, no palpitations. PULMONARY: Denied any shortness of breath. No cough or hemoptysis. GASTROINTESTINAL: No diarrhea, nausea or vomiting. No abdominal pain. Normoactive bowel sounds. NEUROLOGIC: No headaches, no weakness, no numbness. PHYSICAL EXAMINATION: Temperature 99.4, pulse of 61, respiratory rate 18, blood pressure 159/87, saturating at 93% on room air. GENERAL: The patient is alert and oriented x3, not in any acute distress. Well developed, well nourished. HEENT: Pupils are round and equally reacting to light. EOMI. No scleral icterus. No conjunctival pallor. Normocephalic, atraumatic. No pharyngeal erythema. No thyromegaly. CARDIOVASCULAR: S1 and S2 present. No murmurs, rubs, or gallops. PULMONARY: Chest is clear to auscultation, no wheezing or crackles. ABDOMEN: Soft, nontender, nondistended, normoactive bowel sounds. No palpable organomegaly. MUSCULOSKELETAL: No joint swelling or deformity. EXTREMITIES: No cyanosis, clubbing, or pedal edema. NEUROLOGICAL: Gross neurological examination did not reveal any focal deficits. SKIN: No rashes. LABORATORY DATA: Basic metabolic profile is essentially within normal limits. ASSESSMENT AND PLAN: 1. Fever, unclear etiology. Possibility of cholecystitis. Management as mentioned above. 2. Acute renal failure secondary to dehydration, which improved. 3. There is possibility of viral gastroenteritis contributing to all these fever and leukocytosis.
[2016-06-03] MEDS: SODIUM CHLORIDE 0.9% 1,000 ML IV SCH ×3 (05:17→23:50)
[2016-06-03] MEDS: AMPICILLIN-SULBACTAM 3 GM in SODIUM CHLORIDE 0.9% 100 ML IVPB SCH ×4 (05:41→23:48)
--- NOTE | 2016-06-03 07:29 | PN ---
DATE OF SERVICE: 06/02/2016 Reason for followup is fever and likely cholecystitis. INTERVAL HISTORY: The patient is afebrile. The patient is currently breathing comfortably. Denies significant abdominal pain. No nausea or vomiting. Denies having any diarrhea. On examination, blood pressure is 137/83 with a pulse of 69, temperature 99.7. He is 97% on room air. General description is a middle-age male, lying in bed in no distress. RESPIRATORY SYSTEM: Unlabored breathing. Clear to auscultation anteriorly. HEART: S1, S2, regular rate and rhythm. ABDOMEN: Soft, no significant tenderness. EXTREMITIES: No edema of the feet. LABS: Liver enzymes slightly elevated with a BUN of 12, creatinine 1.02. Blood cultures so far negative. DIAGNOSTIC IMPRESSION AND PLAN: Patient with a fever, prior to that he was having vomiting. A CT of the abdomen and pelvis suspicious for cholecystitis. Same was confirmed on the HIDA scan. Surgery has seen the patient, has ordered an ultrasound. Wait for definite surgical intervention. Continue the patient on Unasyn. Continue supportive care.
[2016-06-03 08:16] LABS: CH 30.3; CHCM 34.6; HCT 39.7 % (39.0-53.0); HDW 2.85; HGB 13.5 gm/dL (13.0-17.5); MCH 29.8 pg (25.0-35.0); MCHC 33.9 g/dL (31.0-37.0); MCV 87.9 fL (80.0-100.0); Mean Platelet Volume 9.2; RBC 4.52 m/uL (4.30-5.90); RDW 13.2 % (11.5-15.5); WBC 8.2 k/uL (3.8-10.6)
[2016-06-03 08:32] LABS: Anion Gap 12 mmol/L; Blood Urea Nitrogen 10 mg/dL (9-20); Calcium 8.8 mg/dL (8.4-10.2); Carbon Dioxide 28 mmol/L (22-30); Chloride 103 mmol/L (98-107); Glucose 112 mg/dL (74-99); Non-African American GFR(MDRD) >60 (>60 ml/min/1.73 sqM); Sodium 143 mmol/L (137-145)
[2016-06-03] MEDS: PANTOPRAZOLE 40 MG TABLET PO SCH (09:13)
--- NOTE | 2016-06-03 11:20 | P.PN ---
Progress Note - Text No nausea or vomiting. Did have some breakfast this morning which he tolerated. He did with the fever of unknown origin. All other workup was unremarkable. The on examination the patient is afebrile vitals are stable he is awake alert in no distress. He is anicteric. The abdomen is very soft and benign no tenderness especially in the right upper quadrant area. He does feel a little bit of drainage on deep palpation but nothing of significance. No masses are palpable. Flow WBC is normal. The liver enzymes are coming down. After the did reveal more thickened gallbladder wall sludge with finding consistent with probably most likely acute cholecystitis. Impression most likely acute cholecystitis in view of the nonvisualization of the gallbladder on HIDA scan and gallbladder wall thickening on computed tomography scan and ultrasound raveling the gallbladder. Length with the patient and his rings and my impression. They wish to proceed with the gallbladder surgery on this admission. They do understand the negative findings continued symptoms , potential complications particular bleeding infection surrounding injury open cholecystectomy prolonged recovery etc. they understood and agreed to proceed. Since he had breakfast this morning we will proceed with the surgery tomorrow. Continue IV antibiotics in the meantime and we will keep him on a liquid diet and nothing by mouth after midnight.
--- NOTE | 2016-06-03 14:10 | P.PN ---
Subjective Date Of service 06/03/2016 Progress note being dictated for Dr. Dean. Interval history: This Is a 55-year-old gentleman admitted with fever, signs of sepsis, etiology unclear, acute renal failure, possible gastritis and multiple other medical issues. Persistent fevers,T-max of 99.7. WBC within normal limits. CT and HIDA scan consistent with cholecystitis, ultrasound of gallbladder reporting extensive bowel gas, thickened edematous wall, sludge, evidence for sonographic Benavides sign, common bile duct Limited visualization. Maintained on IV antibiotics and IV fluid hydration. Renal function stabilized. Diarrhea improving. Diet intake improved, without nausea or vomiting. Denies chest pain, palpitations or increasing shortness of breath. Denies abdominal pain. Objective - Vital Signs Vital signs: Vital Signs Temp 99.4 F 06/02/16 23:00 Pulse 71 06/02/16 23:00 Resp 18 06/02/16 23:00 BP 136/79 06/02/16 23:00 Pulse Ox 96 06/02/16 23:00 Intake & Output 06/02/16 06/03/16 06/03/16 18:59 06:59 18:59 Intake Total 900 Balance 900 Intake: IV 800 Sodium Chloride 0.9% 1, 800 000 ml @ 100 mls/hr IV . Q10H FREDY Rx#:[id number] Intake, IV Titration 100 Amount Ampicillin-Sulbactam 3 gm 100 In Sodium Chloride 0.9% 100 ml @ 100 mls/hr IVPB Q6HR FREDY Rx#:[id number] Other: # Voids 1 # Bowel Movements 0 - Exam PHYSICAL EXAM: VITAL SIGNS: As above GENERAL: [Sitting up at side of bed no acute distress] HEENT: [Pupils equal conjunctiva normal.] NECK: [Supple, no JVD] RESPIRATORY EFFORT:[Normal] LUNGS: [Clear to auscultation, no crackles, no wheezing, no rhonchi] CARDIOVASCULAR[regular S1 and S2, no murmurs rubs or gallops, no edema] GI: [Abdomen soft, nontender-no right upper quadrant tenderness, nondistended, positive bowel sounds. No guarding, no rigidity] PSYCH: [Alert and oriented -3, mood and affect normal.] NEURO: No focal deficits, moves all 4 extremities, strength and sensation grossly intact. - Labs CBC & Chem 7: 06/03/16 07:24 06/03/16 07:24 Labs: Abnormal Lab Results - Last 24 Hours (Table) 06/02/16 06/03/16 Range/Units 12:36 07:24 Carbon Dioxide 31 H (22-30) mmol/L Glucose 123 H 112 H (74-99) mg/dL AST 76 H (17-59) U/L ALT 93 H (21-72) U/L Microbiology - Last 24 Hours (Table) 05/30/16 08:45 Blood Culture - Preliminary Blood No Growth after 72 hours Assessment and Plan Plan: 1. [Fever with signs of sepsis, etiology possibly acute cholecystitis 2. [Acute renal failure secondary to dehydration improving with IV fluid hydration]. 3. C. difficile ruled out. 4. Possible viral gastroenteritis contributing to fever. Plan: Continue on current medication regime ,monitoring and symptomatic treatment. Persistent fevers, infectious disease consulted. Maintain IV fluid hydration and IV antibiotics. Scheduled for surgery with Dr. Marquez tomorrow. NPO at midnight. Close monitoring of electrolytes and renal function with repeat labs ordered for a.m. The impression and plan of care has been dictated as directed. : I performed a H&P examination of this patient and discussed the same with the dictator. I agree with the dictator's note. Any additional findings/opinions/ etc. will be noted.
[2016-06-03] MEDS: HEPARIN SODIUM,PORCINE 5,000 UNIT/ML 1 ML VIAL SQ SCH (23:48)
[2016-06-04] MEDS: AMPICILLIN-SULBACTAM 3 GM in SODIUM CHLORIDE 0.9% 100 ML IVPB SCH ×4 (06:06→23:33)
[2016-06-04] MEDS: SODIUM CHLORIDE 0.9% 1,000 ML IV SCH ×2 (06:08→21:23)
--- NOTE | 2016-06-04 07:16 | PN ---
DATE OF SERVICE: 06/03/2016 Reason for followup is fever likely acute cholecystitis. INTERVAL HISTORY: The patient is afebrile. Has been evaluated by Surgery with the plan for laparoscopic cholecystectomy tomorrow as the patient did eat breakfast this morning. The patient denies having any chest pain or shortness of breath or cough and no diarrhea. On examination, blood pressure is 134/78 with a pulse of 64, temperature 98.1. He is 96% on room air. General description is a middle age male lying in bed in no distress. RESPIRATORY SYSTEM: Unlabored breathing. Clear to auscultation, anteriorly. HEART: S1, S2 regular rate and rhythm. ABDOMEN: Soft, no tenderness. EXTREMITIES: No edema of the feet. LABS: Hemoglobin is 13.5, white count 8.2 with a BUN of 10, creatinine 0.93. Blood culture is negative so far. DIAGNOSTIC IMPRESSION AND PLAN: Patient with fever, source acute cholecystitis. The patient responded to Unasyn. Await the laparoscopic cholecystectomy tomorrow. Continue supportive care.
[2016-06-04] MEDS: HEPARIN SODIUM,PORCINE 5,000 UNIT/ML 1 ML VIAL SQ SCH (07:37)
[2016-06-04] MEDS: PANTOPRAZOLE 40 MG TABLET PO SCH (07:37)
[2016-06-04 08:39] LABS: Aty Lym Flag Slight; CH 29.9; CHCM 33.9; HCT 42.5 % (39.0-53.0); HDW 2.82; HGB 13.8 gm/dL (13.0-17.5); MCH 28.9 pg (25.0-35.0); MCHC 32.6 g/dL (31.0-37.0); MCV 88.7 fL (80.0-100.0); Mean Platelet Volume 9.1; RBC 4.79 m/uL (4.30-5.90); RDW 13.1 % (11.5-15.5); WBC 9.1 k/uL (3.8-10.6); WBC (Perox) 8.76
[2016-06-04 08:58] LABS: Anion Gap 14 mmol/L; Blood Urea Nitrogen 9 mg/dL (9-20); Carbon Dioxide 27 mmol/L (22-30); Chloride 103 mmol/L (98-107); Glucose 113 mg/dL (74-99); Non-African American GFR(MDRD) >60 (>60 ml/min/1.73 sqM); Potassium 3.9 mmol/L (3.5-5.1); Sodium 144 mmol/L (137-145)
[2016-06-04] MEDS ORDERED: IV FLUID CONTINUATION 700 ML IV ONE (10:08)
--- NOTE | 2016-06-04 10:09 | P.PN ---
Subjective Date Of service 06/04/2016 Progress note being dictated for Dr. Dean. Interval history: This Is a 55-year-old gentleman admitted with fever, signs of sepsis, cholecystitis, acute renal failure, possible gastritis and multiple other medical issues. Evaluated by surgery yesterday and patient is awaiting surgery this morning. NPO. Mild fever, T-max 99.4 oral. Maintained on IV antibiotics and IV fluid hydration. Denies abdominal pain. Denies chest pain, palpitations or increasing shortness of breath. Objective - Vital Signs Vital signs: Vital Signs Temp 97.6 F 06/04/16 07:00 Pulse 61 06/04/16 07:00 Resp 20 06/04/16 07:00 BP 144/85 06/04/16 07:00 Pulse Ox 95 06/04/16 07:00 Intake & Output 06/03/16 06/04/16 06/04/16 18:59 06:59 18:59 Intake Total 1680 200 Balance 1680 200 Intake: Oral 1680 200 Other: # Voids 2 2 # Bowel Movements 0 - Exam PHYSICAL EXAM: VITAL SIGNS: As above GENERAL: [Sitting up at side of bed no acute distress] HEENT: [Pupils equal conjunctiva normal.] NECK: [Supple, no JVD] RESPIRATORY EFFORT:[Normal] LUNGS: [Clear, no crackles, no wheezing, no rhonchi] CARDIOVASCULAR[regular S1 and S2, no murmurs rubs or gallops, no edema] GI: [Abdomen soft, nontender-no right upper quadrant tenderness, nondistended, positive bowel sounds. No guarding, no rigidity] PSYCH: [Alert and oriented -3, mood and affect normal.] NEURO: No focal deficits, moves all 4 extremities, strength and sensation grossly intact. - Labs CBC & Chem 7: 06/04/16 08:04 06/04/16 08:04 Labs: Abnormal Lab Results - Last 24 Hours (Table) 06/04/16 Range/Units 08:04 Glucose 113 H (74-99) mg/dL Microbiology - Last 24 Hours (Table) 05/30/16 08:45 Blood Culture - Preliminary Blood No Growth after 96 hours Assessment and Plan Plan: 1. [Fever with signs of sepsis, etiology possibly acute cholecystitis 2. [Acute renal failure secondary to dehydration improving with IV fluid hydration]. 3. C. difficile ruled out. 4. Possible viral gastroenteritis contributing to fever. Plan: Continue on current medication regime , antibiotics, monitoring and symptomatic treatment. Maintain IV fluid hydration. Scheduled for surgery with Dr. Marquez this am. Further recommendations to follow. The impression and plan of care has been dictated as directed. : I performed a H&P examination of this patient and discussed the same with the dictator. I agree with the dictator's note. Any additional findings/opinions/ etc. will be noted.
[2016-06-04] MEDS ORDERED: LIDOCAINE 1% 20 ML VIAL (10MG/ML) FOR IV START INTRADERMA ONE (10:20)
[2016-06-04 10:22] LABS: Add Differential Manual Differential
[2016-06-04 10:24] LABS: Manual Review Performed; Nucleated Red Blood Cells 0 /100 WBC (0-0); Total Cells Counted 100
[2016-06-04 10:25] LABS: RBC Morphology Normal; Toxic Granulation Present
[2016-06-04] MEDS ORDERED: LACTATED RINGERS 1,000 ML IV ONE (10:25)
[2016-06-04] MEDS ORDERED: BUPIVACAINE (PF) 0.25% 30 ML VIAL SQ ONE ×2 (10:57→12:33)
[2016-06-04] MEDS ORDERED: SUCCINYLCHOLINE CHLORIDE 100 MG/5 ML SYR IV ONE (11:04)
[2016-06-04] MEDS ORDERED: MIDAZOLAM 2 MG/2 ML VIAL ONE (11:04)
[2016-06-04] MEDS ORDERED: PROPOFOL 10 MG/ML 20 ML VIAL IV ONE (11:04)
[2016-06-04] MEDS ORDERED: fentaNYL (PF) 50 MCG/ML 2 ML AMP ONE (11:04)
[2016-06-04] MEDS ORDERED: LIDOCAINE 1% INJ 10MG/ML (20 ML MDV) ONE (11:04)
[2016-06-04] MEDS ORDERED: ROCURONIUM BROMIDE 10 MG/ML 10 ML VIAL IV ONE (11:04)
[2016-06-04] MEDS ORDERED: DEXAMETHASONE SOD PHOS (MDV) 100 MG/10 ML VIAL ONE (11:04)
[2016-06-04] MEDS ORDERED: NEOSTIGMINE 1 MG/ML 10 ML VIAL ONE (11:04)
[2016-06-04] MEDS ORDERED: HYDROmorphone (PF) 1 MG/ML ONE (11:04)
[2016-06-04] MEDS ORDERED: PHENYLEPHRINE-0.9% NACL SYG 1 MG/10 ML SYRINGE ONE (11:04)
[2016-06-04] MEDS ORDERED: KETOROLAC 30 MG/ML 1 ML VIAL ONE (11:04)
[2016-06-04] MEDS ORDERED: KETAMINE 10 MG/ML 20 ML VIAL ONE (11:04)
[2016-06-04] MEDS ORDERED: GLYCOPYRROLATE 0.2 MG/ML 2 ML VIAL ONE (11:04)
[2016-06-04] MEDS ORDERED: ONDANSETRON 4 MG/2 ML VIAL ONE (11:04)
[2016-06-04] MEDS ORDERED: IV FLUID CONTINUATION 1,000 ML IV ONE (12:55)
--- NOTE | 2016-06-04 12:55 | P.OP ---
Date of Procedure: 06/04/16 Preoperative Diagnosis: Acute cholecystitis Postoperative Diagnosis: Severw Acute Cholecystitis with Empyema of the Gall Bladder. Procedure(s) Performed: Laparoscopic Cholecystectomy Implants: SAMPSON Drain Anesthesia: DAVE Surgeon: Rory Marquez Estimated Blood Loss (ml): 50 Pathology: other (gall bladder) Condition: stable Disposition: floor Indications for Procedure: The patient is a 55-year-old white male admitted with the fever of unknown origin above for [address] showed thickening of the gallbladder wall STDs ultrasound and HIDA scan showed a nonvisualization of the gallbladder. All other workup was essentially negative. No pain or tenderness in the abdomen with minimal GI symptoms. If it was felt his condition was most likely secondary to acute gallbladder disease. Laparoscopic exam with possible laparoscopic cholecystectomy possible open was recommended and informed consent was obtained the procedure having being explained to him including potential complication particular bleeding infection surrounding injury increased risk for complications if this indeed was the acute cholecystitis. He understood and agreed to proceed. Operative Findings: Severe acute cholecystitis with empyema of the gallbladder , probably acalculous. Description of Procedure: After induction of general endotracheal anesthesia the abdominal wall was prepped with Betadine and draped local anesthetic Marcaine 0.5% with epinephrine was infiltrated into the skin and subcutaneous tissue just below the umbilicus. A short transverse incision was made. The fascia was exposed and retracted and a Veress needle inserted under direct vision a satisfactory saline drop test. The peritoneal cavity was then inflated with carbon dioxide to pressure approximately 15 mmHg. The needle was then replaced with a 10 mm trocar and the laparoscope inserted. 25 mm trochars were placed in the right upper quadrant and another 5 mm trocar in the epigastrium under direct vision under local anesthesia. Visual exploration confirmed an acutely inflamed gallbladder markedly distended with a wall extremely thickened and edematous. The gallbladder had to be decompressed with the aspiration with the a needle through the epigastric port site. The fluid was sent for cultures. The area of the neck were then carefully dissected cystic duct identified certainly denies junction with the gallbladder, duct well visualized the cystic duct was then triply clipped and divided as was the cystic artery. The gallbladder was then dissected from its bed and removed in an Endo Catch bag through the umbilical port site. Supernatant infrahepatic spaces were thoroughly irrigated hemostasis secured from the liver bed with the electrocautery and the field was dry. A SAMPSON drain was placed in Brown's pouch and brought out through the lateral port site and secured to the skin with a nylon stitch. The direct vision CO2 evacuated. Fascial incision at the umbilicus of was closed with the interrupted 0 Vicryl sutures this the fascial defect was larger than usual because of the large thick-walled edematous gallbladder. The incisions were then closed with interrupted 4-0 Monocryl after the subcutaneous tissues were thoroughly irrigated with the umbilicus. Dermabond was applied dressings were placed FOR CORRECT BLOOD LOSS WAS LESS THAN 50 MLS THE PATIENT REMAINED STABLE AND WAS TRANSFERRED TO THE RECOVERY ROOM IN GOOD AND STABLE CONDITION.
[2016-06-04] MEDS: MORPHINE SULFATE 4 MG/ML SYRINGE IV PRN ×2 (17:35→22:34)
[2016-06-05] MEDS: MORPHINE SULFATE 4 MG/ML SYRINGE IV PRN ×2 (05:22→09:15)
[2016-06-05] MEDS: SODIUM CHLORIDE 0.9% 1,000 ML IV SCH ×2 (05:25→15:46)
[2016-06-05] MEDS: AMPICILLIN-SULBACTAM 3 GM in SODIUM CHLORIDE 0.9% 100 ML IVPB SCH ×4 (06:04→23:28)
--- NOTE | 2016-06-05 07:40 | P.PN ---
Progress Note - Text Patient has a low-grade fever up to about 100.3. He is otherwise comfortable. Usual postoperative discomfort. Tolerated a regular diet. No nausea or vomiting. His abdomen is quite soft with usual postoperative tenderness. SAMPSON drain is secured mostly serosanguineous only about 25 amounts last 8 hours. Satisfactory postoperative course status post lap katelyn for severe acute cholecystitis with empyema with the gallbladder filled with pus. The recommend continue IV antibiotics for today encourage ambulation. Probably DC SAMPSON drain tomorrow and she'll be able to be discharged tomorrow. Cultures pending.
[2016-06-05 08:51] LABS: Basophils # (A) 0.2 k/uL (0-0.2); Basophils % (A) 2 %; CH 30.2; CHCM 34.2; Eosinophils % (A) 0 %; HCT 40.1 % (39.0-53.0); HDW 2.68; HGB 13.1 gm/dL (13.0-17.5); Luc # (Auto) 0.34; Luc % (Auto) 3; Lymphocytes # (A) 1.4 k/uL (1.0-4.8); Lymphocytes % (A) 10 %; MCHC 32.6 g/dL (31.0-37.0); MCV 88.9 fL (80.0-100.0); Mean Platelet Volume 8.5; Monocytes # (A) 1.1 k/uL (0-1.0); Monocytes % (A) 8 %; Neutrophils # (A) 10.5 k/uL (1.3-7.7); Neutrophils % (A) 78 %; RBC 4.51 m/uL (4.30-5.90); RDW 13.1 % (11.5-15.5); WBC 13.6 k/uL (3.8-10.6); WBC (Perox) 13.66
[2016-06-05] MEDS: PANTOPRAZOLE 40 MG TABLET PO SCH (09:15)
[2016-06-05 10:49] LABS: Anion Gap 14 mmol/L; Blood Urea Nitrogen 12 mg/dL (9-20); Calcium 8.9 mg/dL (8.4-10.2); Carbon Dioxide 25 mmol/L (22-30); Chloride 102 mmol/L (98-107); Glucose 110 mg/dL (74-99); Non-African American GFR(MDRD) >60 (>60 ml/min/1.73 sqM); Potassium 4.6 mmol/L (3.5-5.1); Sodium 141 mmol/L (137-145)
[2016-06-05 11:35] VITALS: BMI 35.5
[2016-06-05] MEDS: HYDROcodone/APAP 5-325MG 1 EACH TAB PO PRN ×2 (12:36→15:44)
--- NOTE | 2016-06-05 15:58 | P.PN ---
Subjective Date Of service 06/05/2016 Progress note being dictated for Dr. Dean. Interval history: This Is a 55-year-old gentleman admitted with fever, signs of sepsis, cholecystitis, and multiple other medical issues. Underwent laparoscopic cholecystectomy yesterday discovering acutely inflamed gallbladder with empyema. Cultures sent. tolerated procedure well. Maintained on IV antibiotics, T-max 100.2. Abdominal discomfort, controlled with current pain management. Tolerating low fat diet with no nausea or vomiting. Ambulating in hallway, tolerating increase in exertion well. Denies chest pain, palpitations or increasing shortness of breath. Objective - Vital Signs Vital signs: Vital Signs Temp 99.9 F H 06/05/16 07:00 Pulse 73 06/05/16 07:00 Resp 16 06/05/16 07:00 BP 114/71 06/05/16 07:00 Pulse Ox 94 L 06/05/16 07:00 Intake & Output 06/04/16 06/05/16 06/05/16 18:59 06:59 18:59 Intake Total 1580 500 Output Total 25 100 40 Balance 1555 400 -40 Weight 102.965 kg Intake: IV 1100 Oral 480 500 Output: Drainage 100 40 Abdomen 100 40 Estimated Blood Loss 25 Other: Voiding Method Toilet # Voids 1 1 - Exam PHYSICAL EXAM: VITAL SIGNS: As above GENERAL: [Sitting up at side of bed no acute distress] HEENT: [Pupils equal conjunctiva normal.] NECK: [Supple, no JVD] RESPIRATORY EFFORT:[Normal] LUNGS: [Clear, no crackles, no wheezing, no rhonchi] CARDIOVASCULAR[regular S1 and S2, no murmurs rubs or gallops, no edema] GI: [Abdomen soft, status post surgery-laparoscopic, Steri-Strips intact, SAMPSON with serosanguineous drainage] PSYCH: [Alert and oriented -3, mood and affect normal.] NEURO: No focal deficits, moves all 4 extremities, strength and sensation grossly intact. - Labs CBC & Chem 7: 06/05/16 08:02 06/05/16 08:02 Labs: Abnormal Lab Results - Last 24 Hours (Table) 06/05/16 06/05/16 Range/Units 08:02 08:02 WBC 13.6 H (3.8-10.6) k/uL Neutrophils # 10.5 H (1.3-7.7) k/uL Monocytes # 1.1 H (0-1.0) k/uL Glucose 110 H (74-99) mg/dL Microbiology - Last 24 Hours (Table) 05/30/16 08:45 Blood Culture - Final Blood No Growth after 144 hours 06/04/16 11:30 Gram Stain - Preliminary Aspirate Body Fluid Culture - Preliminary 06/04/16 11:30 Anaerobic Culture - Preliminary Gallbladder Fluid Assessment and Plan Plan: 1. [Fever with signs of sepsis, related to acute severe cholecystitis with empyema, cultures pending 2. [Acute renal failure secondary to dehydration improving with IV fluid hydration]. 3. C. difficile ruled out. Plan: Continue on current medication regime , antibiotics, monitoring and symptomatic treatment. Maintain IV antibiotics for another 24 hours, discharge planning in progress for potentially tomorrow pending fever subside and surgical clearance. The impression and plan of care has been dictated as directed. : I performed a H&P examination of this patient and discussed the same with the dictator. I agree with the dictator's note. Any additional findings/opinions/ etc. will be noted.
--- NOTE | 2016-06-05 20:52 | PN ---
DATE OF SERVICE: 06/05/2016 REASON FOR FOLLOWUP: Acute cholecystitis INTERVAL HISTORY: The patient is afebrile, except he had a low-grade fever last night. The patient denies having any chest pain or cough. No significant abdominal pain. No nausea, vomiting or any diarrhea. On examination, blood pressure 124/66 with pulse of 77, temperature 98.7. He is 93% on room air. General description is a middle-aged male lying in bed in no distress. RESPIRATORY SYSTEM: Unlabored breathing. Clear to auscultation anteriorly. HEART: S1, S2. Regular rate and rhythm. ABDOMEN: Soft. EXTREMITIES: No edema of the feet. LABS: Hemoglobin is 13.1 with a white count of 13.6 with a BUN of 12, creatinine 1.01. Cultures are currently pending. DIAGNOSTIC IMPRESSION AND PLAN: Patient with acute cholecystitis with evidence of pus, status post cholecystectomy. Patient will continue on the Unasyn. Awaiting the culture to finalize to determine discharge antibiotics, more likely oral. Continue supportive care. [facility]
[2016-06-06] MEDS: ACETAMINOPHEN TAB 325 MG TAB PO PRN (00:43)
[2016-06-06] MEDS: SODIUM CHLORIDE 0.9% 1,000 ML IV SCH ×3 (02:05→20:25)
[2016-06-06] MEDS: AMPICILLIN-SULBACTAM 3 GM in SODIUM CHLORIDE 0.9% 100 ML IVPB SCH (06:00)
[2016-06-06] MEDS: PANTOPRAZOLE 40 MG TABLET PO SCH (08:17)
[2016-06-06] MEDS ORDERED: IV VANCOMYCIN PER PHARMACY 1 EACH MISC MISCELLANE PRN (09:57)
[2016-06-06] MEDS ORDERED: VANCOMYCIN 1,750 MG in SODIUM CHLORIDE 0.9% 250 ML IVPB ONE ×2 (10:15→14:00)
[2016-06-06] MEDS: PIPERACILLIN-TAZOBACTAM 3.375 GM in DEXTROSE/WATER 1 50ML.BAG IVPB SCH ×3 (10:22→23:22)
--- NOTE | 2016-06-06 11:21 | P.PN ---
Progress Note - Text Still running a low-grade fever. Otherwise feels well. Denies any abdominal pain. SAMPSON drain is serosanguineous. His tolerating his diet well. Abdomen is otherwise soft. Trocar sites are fine. WBC slightly elevated. Culture from the gallbladder revealed Klebsiella pneumonia. Antibiotics have been appropriately changed. Recommendation we'll DC the SAMPSON drain. Encourage ambulation incentive spirometry. Continue IV antibiotics until his fever resolves.
--- NOTE | 2016-06-06 15:01 | P.PN ---
Subjective Date Of service 06/06/2016 Progress note being dictated for Dr. Hodge Interval history: This Is a 55-year-old gentleman admitted with fever, signs of sepsis, cholecystitis, status post laparoscopic cholecystectomy for acutely inflamed gallbladder with empyema and multiple other medical issues. Gallbladder aspirate culture growing Klebsiella pneumoniae. Persistent fevers, T -max 101.3 , recultured, antibiotics adjusted as per infectious disease. SAMPSON with minimal serosanguineous drainage, ordered to be discontinued today. Pain controlled, ambulating, tolerating increase in activity. IS up to 1500. Tolerating low fat diet with no nausea or vomiting. Denies chest pain, palpitations or increasing shortness of breath. Objective - Vital Signs Vital signs: Vital Signs Temp 100.8 F H 06/06/16 09:06 Pulse 77 06/06/16 07:00 Resp 18 06/06/16 08:00 BP 132/67 06/06/16 07:00 Pulse Ox 94 L 06/06/16 07:00 Intake & Output 06/05/16 06/06/16 06/06/16 18:59 06:59 18:59 Intake Total 250 Output Total 120 125 50 Balance -120 125 -50 Weight 102.965 kg Intake: Oral 250 Output: Drainage 120 125 50 Abdomen 120 125 50 Other: Voiding Method Toilet Toilet # Voids 1 1 1 # Bowel Movements 1 - Exam PHYSICAL EXAM: VITAL SIGNS: As above GENERAL: [Sitting up in bed ,no acute distress] HEENT: [Pupils equal conjunctiva normal.] NECK: [Supple, no JVD] RESPIRATORY EFFORT:[Normal] LUNGS: [Clear, no crackles, no wheezing, no rhonchi] CARDIOVASCULAR[regular S1 and S2, no murmurs rubs or gallops, no edema] GI: [Abdomen soft, status post surgery-laparoscopic sites clean dry and intact , SAMPSON with serosanguineous drainage] PSYCH: [Alert and oriented -3, mood and affect normal.] NEURO: No focal deficits, moves all 4 extremities, strength and sensation grossly intact. Microbiology 06/04/16 11:30 Aspirate Gram Stain - Final 06/04/16 11:30 Aspirate Body Fluid Culture - Final Klebsiella pneumoniae 05/30/16 08:45 Blood Blood Culture - Final No Growth after 144 hours 06/04/16 11:30 Gallbladder Fluid Anaerobic Culture - Preliminary 05/29/16 22:05 Urine,Voided Urine Culture - Final - Labs CBC & Chem 7: 06/05/16 08:02 06/05/16 08:02 Labs: Microbiology - Last 24 Hours (Table) 06/04/16 11:30 Gram Stain - Final Aspirate Body Fluid Culture - Final Klebsiella pneumoniae 05/30/16 08:45 Blood Culture - Final Blood No Growth after 144 hours Assessment and Plan Plan: 1. [Fever with signs of sepsis, related to acute severe cholecystitis with empyema, growing Klebsiella pneumoniae 2. [Acute renal failure secondary to dehydration improving with IV fluid hydration]. 3. C. difficile ruled out. 4. Persistent fevers, workup in progress Plan: Continue on current medication regime , antibiotics, monitoring and symptomatic treatment. IV antibiotics as per infectious disease, continue following cultures closely. Discharge planning in progress once afebrile 24 hours. Further recommendations to follow. The impression and plan of care has been dictated as directed. : I performed a H&P examination of this patient and discussed the same with the dictator. I agree with the dictator's note. Any additional findings/opinions/ etc. will be noted.
--- NOTE | 2016-06-06 20:04 | XR ---
EXAMINATION TYPE: XR chest 2V DATE OF EXAM: 06/06/2016 5:15 PM COMPARISON: Chest x-ray May 30, 1999 HISTORY: Postoperative fever postoperative fever TECHNIQUE: Frontal and lateral views of the chest are obtained. FINDINGS: There are scattered linear bands of added opacity consistent with scattered subsegmental a telectasis, including elevation of the right hemidiaphragm. These findings were seen on the prior lori dy. No definite lung consolidation. There is no pulmonary edema. No abnormal fluid or gas collections evident. Mediastinal silhouette and bones and soft tissues are unremarkable as seen. IMPRESSION: No definite acute process.
--- NOTE | 2016-06-06 20:52 | PN ---
DATE OF SERVICE: 06/06/2016 REASON FOR FOLLOWUP: Acute cholecystitis. INTERVAL HISTORY: The patient did spike a fever of 102 degrees Fahrenheit last night. Unfortunately, we were not notified. He did spike another fever of 101.3 degrees Fahrenheit, at which time the R.N. did call. Blood culture was requested as well as urine culture. Antibiotic was adjusted. The patient denies any significant abdominal pain. No nausea. No vomiting. Denies any chest pain or shortness of breath or cough. No urinary symptoms. On examination, blood pressure is 154/78 with a pulse of 83, temperature 100.6, T-max of 102. He is 92% on room air. General description is a middle-age male lying in bed in no distress. RESPIRATORY SYSTEM: Unlabored breathing with decreased breath sounds at the bases. No wheeze. HEART: S1, S2 regular rate and rhythm. ABDOMEN: Soft. No tenderness. No rebound or rigidity. EXTREMITIES: No edema of the feet. LABS: Hemoglobin is 13.1, white count of 13.6 with a BUN of 12, creatinine 1.01. The gallbladder aspirate did grow Klebsiella pneumoniae that is a sensitive pathogen. DIAGNOSTIC IMPRESSION AND PLAN: Patient with acute cholecystitis, status post laparoscopic cholecystectomy, now with postoperative sepsis with a fever, elevated white count. We did repeat the blood cultures as well as the urinalysis. Will obtain a chest x-ray. Antibiotic has been broadened, though what we grew from the gallbladder aspirate is a sensitive pathogen. Antibiotic will be adjusted further depending on the clinical response and repeat culture. Continue supportive care.
[2016-06-07] MEDS ORDERED: VANCOMYCIN 1,750 MG in SODIUM CHLORIDE 0.9% 250 ML IVPB SCH (04:00)
[2016-06-07] MEDS: PIPERACILLIN-TAZOBACTAM 3.375 GM in DEXTROSE/WATER 1 50ML.BAG IVPB SCH (07:36)
[2016-06-07] MEDS: PANTOPRAZOLE 40 MG TABLET PO SCH (07:36)
[2016-06-07] MEDS: SODIUM CHLORIDE 0.9% 1,000 ML IV SCH (07:41)
[2016-06-07 08:16] VITALS: BP 129/86; PULSE 92; RESP 16; TEMP 98.4
[2016-06-07 08:53] LABS: Basophils % (A) 0 %; CH 29.8; CHCM 33.4; Eosinophils # (A) 0.1 k/uL (0-0.7); Eosinophils % (A) 1 %; HCT 41.1 % (39.0-53.0); HDW 2.64; HGB 13.5 gm/dL (13.0-17.5); Luc # (Auto) 0.17; Luc % (Auto) 2; Lymphocytes # (A) 1.2 k/uL (1.0-4.8); Lymphocytes % (A) 12 %; MCH 29.3 pg (25.0-35.0); MCHC 32.7 g/dL (31.0-37.0); MCV 89.6 fL (80.0-100.0); Mean Platelet Volume 7.5; Monocytes # (A) 0.8 k/uL (0-1.0); Monocytes % (A) 8 %; Neutrophils # (A) 7.3 k/uL (1.3-7.7); Neutrophils % (A) 76 %; RBC 4.59 m/uL (4.30-5.90); RDW 12.9 % (11.5-15.5); WBC 9.6 k/uL (3.8-10.6); WBC (Perox) 9.64
[2016-06-07 09:16] LABS: Anion Gap 12 mmol/L; Blood Urea Nitrogen 12 mg/dL (9-20); Calcium 8.7 mg/dL (8.4-10.2); Carbon Dioxide 27 mmol/L (22-30); Chloride 102 mmol/L (98-107); Glucose 114 mg/dL (74-99); Magnesium 2.3 mg/dL (1.6-2.3); Non-African American GFR(MDRD) >60 (>60 ml/min/1.73 sqM); Potassium 4.4 mmol/L (3.5-5.1); Sodium 141 mmol/L (137-145)
--- NOTE | 2016-06-07 09:56 | P.PN ---
Progress Note - Text The patient's temperature is down he is feeling a lot better. Tolerated his breakfast well. The SAMPSON drain is out. Abdomen is quite soft with minimal postoperative tenderness. WBCs normal. Impression improvement in fever . Empyema of the gallbladder status post laparoscopic cholecystectomy with Klebsiella.. On vancomycin and Zosyn. Recommendation antibiotic management per ID. If his temperatures to continues to stay down can be discharged from a surgical standpoint. We will follow him up in the office in about 5 or 6 days.
--- NOTE | 2016-06-07 10:49 | PN ---
DATE OF SERVICE: 06/06/2016 This 55 -year-old gentleman admitted to the hospital with fever and signs of sepsis, underwent laparoscopic cholecystectomy. Seen and evaluated the patient along with the nurse practitioner. Please refer to the nurse practitioner notes and impressions documented as a scribe for further information. Prognosis guarded. Further recommendations to follow.
--- NOTE | 2016-06-07 15:40 | PN ---
DATE OF SERVICE: 06/07/2016 Reason for follow-up is acute cholecystitis with empyema of gallbladder. INTERVAL HISTORY: Patient overall fever pattern has improved. He had low-grade fever of 100.5 last night. However, he is afebrile this morning. The patient overall is feeling better. The patient denies having any chest pain. No shortness of breath or cough. No abdominal pain. No nausea, no vomiting, no diarrhea. On examination, blood pressure 129/86 with a pulse of 92, temperature 98.4. He is 92% on room air. General description is a middle-age male lying in bed in no distress. RESPIRATORY SYSTEM: Unlabored breathing. Clear to auscultation anteriorly. HEART: S1, S2 regular rate and rhythm. ABDOMEN: Soft, no tenderness. LABS: Hemoglobin is 13.5, white count 9.6 with a BUN of 12, creatinine 1.02. The biliary culture with Klebsiella pneumoniae with sensitive pathogen. DIAGNOSTIC IMPRESSION AND PLAN: Patient with Klebsiella pneumoniae, acute cholecystitis status post cholecystectomy. He did have a postop fever; that however has resolved. White count has normalized. Culture has been negative. The patient wants to go home. Antibiotics will be adjusted to Cipro 500 mg twice a day for another 12 days with outpatient follow-up. Scripts written for the patient. MANJU
[2016-06-08] MEDS ORDERED: VANCOMYCIN TROUGH DUE 1 EACH MISC MISCELLANE ONE (11:00)
--- NOTE | 2016-06-08 12:23 | DS ---
DATE OF ADMISSION: 05/29/2016 DATE OF DISCHARGE: 06/07/2016 FINAL DIAGNOSES: 1. Fever with possible sepsis secondary to severe acute cholecystitis with empyema grossing Klebsiella pneumoniae, status post laparoscopic cholecystectomy. 2. Acute renal failure secondary to dehydration with prerenal and acute tubular necrosis. 3. Clostridium difficile ruled out. 4. Persistent fevers. 5. Increased WBC, improved. 6. Increased random blood sugar. 7. Increased AST, ALT. DISCHARGE DISPOSITION: The patient will be discharged in a stable condition with guarded prognosis. Discharge cleared by Surgery and as well as Infectious Disease. HISTORY OF PRESENT ILLNESS: This 55-year-old gentleman with a past medical history of multiple medical problems was admitted with features of sepsis secondary to acute cholecystitis. The patient was treated with IV antibiotics. The patient also underwent laparoscopic cholecystectomy by Dr. Marquez. Patient was seen by Dr. Esparza and Dr. Marquez during hospitalization. Patient improved significantly. On exam, vitals are stable. CARDIOVASCULAR: S1 and S2 muffled. RESPIRATORY: A few scattered rhonchi. ABDOMEN: Soft, nontender. NERVOUS SYSTEM; No focal deficits. DISCHARGE ADVICE: 1. Diet is cardiac, soft. 2. Activity limited until followup. 3. Follow up with Dr. Mckinley in 2 to 3 days. 4. Follow up with Dr. Esparza and Dr. Marquez as recommended. 5. Wound care per Dr. Marquez. MEDICATIONS: 1. Tylenol 1000 mg q.6 p.r.n. 2. Cipro 500 mg p.o. b.i.d. for 2 weeks. 3. Cisco 5 mg q.4 p.r.n. 4. Omeprazole 20 mg p.o. daily. MTDD
== END 2016-06-07 15:43 | disposition home or self-care (01) | DRG 853 ==
LOC: EC 18:20 → 4MS4W 23:14
PROVIDERS: ADMIT Internal Medicine; ATTEND Internal Medicine
PROC: 0FT44ZZ Resection of Gallbladder, Percutaneous Endoscopic Approach (ICD-10-PCS; principal; 2016-06-04 11:00)
DX: A41.9 Sepsis, unspecified organism (principal); N17.0 Acute kidney failure with tubular necrosis; K81.0 Acute cholecystitis; D69.6 Thrombocytopenia, unspecified; E86.0 Dehydration; K57.90 Diverticulosis of intestine, part unspecified, without perforation or abscess without bleeding; M16.0 Bilateral primary osteoarthritis of hip; G89.29 Other chronic pain; M54.5 Low back pain; K63.5 Polyp of colon; B96.1 Klebsiella pneumoniae [K. pneumoniae] as the cause of diseases classified elsewhere; Z87.891 Personal history of nicotine dependence; Z82.49 Family history of ischemic heart disease and other diseases of the circulatory system
CPT/HCPCS: 36415; 71010; 71020; 73502; 74176; 76705; 78226; 80048; 80053; 80299; 81001; 82150; 83605; 83690; 83735; 85025; 85027; 87040; 87070; 87075; 87077; 87086; 87186; 87205; 87502; 88304; 96361; 96374; 99291

== ENCOUNTER → 2016-07-12 | Outpatient (CLI) | payer OTHER ==
[2016-07-12 18:02] LABS: Appearance,Urine Clear (Clear); Bilirubin,Urine Negative (Negative); Glucose,Urine (UA) Negative (Negative); Ketones,Urine Negative (Negative); Leukocyte Esterase,Urine Negative (Negative); Nitrite,Urine Negative (Negative); PH, Urine 5.5 (5.0-8.0); Protein,Urine Negative (Negative); UA Billing (MACRO vs. MICRO) CHEM; Urobilinogen,Urine <2.0 mg/dL (<2.0)
[2016-07-12 18:04] LABS: Basophils # (A) 0.1 k/uL (0-0.2); Basophils % (A) 1 %; CH 29.9; Eosinophils # (A) 0.2 k/uL (0-0.7); Eosinophils % (A) 3 %; HCT 44.7 % (39.0-53.0); HDW 2.79; HGB 15.3 gm/dL (13.0-17.5); Luc % (Auto) 3; Lymphocytes % (A) 31 %; MCH 29.4 pg (25.0-35.0); MCHC 34.2 g/dL (31.0-37.0); MCV 85.9 fL (80.0-100.0); Mean Platelet Volume 8.1; Monocytes # (A) 0.6 k/uL (0-1.0); Monocytes % (A) 9 %; Neutrophils # (A) 3.3 k/uL (1.3-7.7); Neutrophils % (A) 52 %; RBC 5.21 m/uL (4.30-5.90); RDW 12.9 % (11.5-15.5); WBC 6.4 k/uL (3.8-10.6); WBC (Perox) 5.98
[2016-07-12 18:07] LABS: INR 1.1 (<1.1); Partial Thromboplastin Time 23.9 sec (22.0-30.0); Prothrombin Time 10.9 sec (9.0-12.0)
[2016-07-12 18:11] LABS: ALT 52 U/L (21-72); AST 44 U/L (17-59); Alkaline Phosphatase 83 U/L (38-126); Anion Gap 14 mmol/L; Blood Urea Nitrogen 14 mg/dL (9-20); Calcium 10.2 mg/dL (8.4-10.2); Carbon Dioxide 29 mmol/L (22-30); Chloride 103 mmol/L (98-107); Glucose 101 mg/dL (74-99); Non-African American GFR(MDRD) >60 (>60 ml/min/1.73 sqM); Potassium 4.6 mmol/L (3.5-5.1); Sodium 146 mmol/L (137-145); Total Bilirubin 0.8 mg/dL (0.2-1.3); Total Protein 7.8 g/dL (6.3-8.2)
== END | disposition home or self-care (01) ==
LOC: LABPAT 17:30
PROVIDERS: ATTEND Orthopaedic Surgery
DX: Z01.812 Encounter for preprocedural laboratory examination (principal)
CPT/HCPCS: 80053; 81003; 85025; 85610; 85730; 87070

== ENCOUNTER 2016-07-23 05:54 | Inpatient (IN) | payer OTHER ==
[2016-07-17 16:48] VITALS: BMI 30.8
[~2016-07-23 05:54] MED LIST: DEXAMETHASONE SOD PHOSPHATE 10 MG/ML 1 ML VIAL IV ONE; FAMOTIDINE 20 MG/2 ML VIAL IV PRN; HYDROmorphone 1 MG/ML 1 ML SYRINGE IVP PRN; LACTATED RINGERS 1,000 ML IV SCH; LIDOCAINE 1% 20 ML VIAL (10MG/ML) FOR IV START INTRADERMA PRN; MIDAZOLAM 2 MG/2 ML VIAL IV PRN; ONDANSETRON 4 MG/2 ML VIAL IVP ONE; SCOPOLAMINE 1.5MG/72HR PATCH TRANSDERM ONE; ceFAZolin 2 GM in SODIUM CHLORIDE 0.9% 100 ML IVPB ONE
[2016-07-23] MEDS ORDERED: MIDAZOLAM 2 MG/2 ML VIAL ONE (06:57)
[2016-07-23] MEDS ORDERED: PROPOFOL 10 MG/ML 20 ML VIAL IV ONE (06:57)
[2016-07-23] MEDS ORDERED: LIDOCAINE 1% INJ 10MG/ML (20 ML MDV) ONE (06:57)
[2016-07-23] MEDS ORDERED: ePHEDrine 50 MG/ML 1 ML AMP ONE (06:57)
[2016-07-23] MEDS ORDERED: PHENYLEPHRINE-0.9% NACL SYG 1 MG/10 ML SYRINGE ONE (06:57)
[2016-07-23] MEDS ORDERED: diphenhydrAMINE 50 MG/ML 1 ML VIAL ONE (06:57)
[2016-07-23] MEDS ORDERED: GLYCOPYRROLATE 0.2 MG/ML 2 ML VIAL ONE (06:57)
[2016-07-23] MEDS ORDERED: fentaNYL (PF) 50 MCG/ML 2 ML AMP ONE (06:57)
[2016-07-23] MEDS ORDERED: ceFAZolin 3,000 MG in SODIUM CHLORIDE 0.9% IRRIGATIO 3,000 ML IRRIGATION ONE (07:48)
[2016-07-23] MEDS ORDERED: LACTATED RINGERS 1,000 ML IV ONE ×3 (07:48→09:01)
[2016-07-23] MEDS ORDERED: ONDANSETRON 4 MG/2 ML VIAL IVP PRN (09:44)
[2016-07-23] MEDS ORDERED: HYDROcodone/APAP 7.5-325MG 1 EACH TAB PO PRN (09:44)
[2016-07-23] MEDS ORDERED: NALOXONE 0.4 MG/ML 1 ML VIAL IV PRN (09:44)
[2016-07-23] MEDS ORDERED: HYDROmorphone 1 MG/ML 1 ML SYRINGE IVP PRN ×2 (09:44)
[2016-07-23] MEDS ORDERED: TEMAZEPAM 15 MG CAP PO PRN (09:44)
[2016-07-23] MEDS ORDERED: MAGNESIUM HYDROXIDE 2,400 MG/10 ML CUP PO PRN (09:44)
--- NOTE | 2016-07-23 10:16 | XR ---
EXAMINATION TYPE: XR Hip Limited RT DATE OF EXAM: 07/23/2016 10:08 AM CLINICAL HISTORY: Right hip pain and osteoarthritis. TECHNIQUE: Single AP portable view of right hip is obtained immediately postoperatively. COMPARISON: Right hip x-ray May 31, 2016. FINDINGS: Metallic hardware from total right hip arthroplasty is seen and appears satisfactory in ali gnment and position. There is evidence of recent surgery with subcutaneous gas noted laterally. IMPRESSION: Metallic hardware from total right hip arthroplasty is satisfactory in position.
[2016-07-23] MEDS: HYDROcodone/APAP 7.5-325MG 1 EACH TAB PO PRN ×2 (13:08→20:02)
[2016-07-23] MEDS: hydrOXYzine PAMOATE 25 MG CAP PO PRN ×2 (13:09→20:03)
[2016-07-23] MEDS: HYDROmorphone 1 MG/ML 1 ML SYRINGE IVP PRN ×2 (14:29→17:57)
[2016-07-23] MEDS: LACTATED RINGERS 1,000 ML IV SCH ×2 (15:03→21:39)
[2016-07-23] MEDS: ceFAZolin 2 GM in SODIUM CHLORIDE 0.9% 100 ML IVPB SCH ×2 (15:33→23:21)
--- NOTE | 2016-07-23 16:01 | CONS ---
DATE OF CONSULTATION: REASON FOR CONSULTATION: Perioperative complication management. Patient is a pleasant 55-year-old gentleman who came in with complaints of right knee pain. Patient underwent right knee arthroplasty. Post-surgically patient is clinically doing well. Patient denied any fever or chills. Patient denied any nausea, vomiting. Patient does not have any postoperative hypotension. Patient denied any abdominal pain, dysuria, cough, runny nose. REVIEW OF SYSTEMS: CONSTITUTIONAL: No fever, no malaise, no fatigue. HEENT: No recent visual problems or hearing problems. Denied any sore throat. CARDIOVASCULAR: No chest pain, orthopnea, PND, no palpitations, no syncope. PULMONARY: No shortness of breath, no cough, no hemoptysis. GASTROINTESTINAL: No diarrhea, no nausea, no vomiting, no abdominal pain. Normoactive bowel sounds. NEUROLOGICAL: No headaches, no weakness, no numbness. HEMATOLOGICAL: Denies any bleeding or petechiae. GENITOURINARY: Denies any burning micturition, frequency, or urgency. MUSCULOSKELETAL/RHEUMATOLOGICAL: Patient's pain is well controlled in the right knee. Patient is postoperative day zero. ENDOCRINE: Denies any polyuria or polydipsia. The rest of the 14 point review of systems is negative. PAST MEDICAL HISTORY: 1. Gastroesophageal reflux disease. 2. Osteoarthritis. 3. Cholecystectomy in the past. I saw him during his previous hospitalization. Patient was septic and had cholecystitis which was complicated. Patient subsequently underwent cholecystectomy. SOCIAL HISTORY: Former smoker. Used to smoke one and a half packs per day. Denied any alcohol abuse or any drug abuse. FAMILY HISTORY: Significant for heart valve disease. PHYSICAL EXAMINATION: VITAL SIGNS: Temperature 97.3, pulse of 92, respiratory rate of 17. Blood pressure is 140/86. Saturating at 96% on 2 L of oxygen by nasal cannula. GENERAL: The patient is alert and oriented x3, not in any acute distress. Well developed, well nourished. HEENT: Pupils are round and equally reacting to light. EOMI. No scleral icterus. No conjunctival pallor. Normocephalic, atraumatic. No pharyngeal erythema. No thyromegaly. CARDIOVASCULAR: S1 and S2 present. No murmurs, rubs, or gallops. PULMONARY: Chest is clear to auscultation, no wheezing or crackles. ABDOMEN: Soft, nontender, nondistended, normoactive bowel sounds. No palpable organomegaly. MUSCULOSKELETAL: Deferred to Orthopedic Surgery. EXTREMITIES: No cyanosis, clubbing, or pedal edema. NEUROLOGICAL: Gross neurological examination did not reveal any focal deficits. SKIN: No rashes. LABORATORY DATA: None available. ASSESSMENT AND PLAN: 1. Right knee arthroplasty, postoperative day zero. Pain management and DVT prophylaxis per primary service. 2. Gastroesophageal reflux disease. Recommend to continue Prilosec. Patient is otherwise clinically doing well. No further recommendations. Will continue to follow the patient only on an as-needed basis. Thank you for letting me participate in the patient's care.
[2016-07-23] MEDS ORDERED: WARFARIN 5 MG TAB PO ONE (18:00)
[2016-07-23] MEDS: SENNOSIDES-DOCUSATE SODIUM 1 EACH TAB PO SCH (20:03)
[2016-07-24] MEDS: hydrOXYzine PAMOATE 25 MG CAP PO PRN ×4 (01:01→18:34)
[2016-07-24] MEDS: HYDROcodone/APAP 7.5-325MG 1 EACH TAB PO PRN ×4 (01:02→18:33)
[2016-07-24 07:29] LABS: Basophils % (A) 0 %; CHCM 34.4; Eosinophils % (A) 0 %; HDW 2.78; HGB 13.6 gm/dL (13.0-17.5); Luc # (Auto) 0.21; Luc % (Auto) 2; Lymphocytes # (A) 1.3 k/uL (1.0-4.8); Lymphocytes % (A) 12 %; MCH 28.3 pg (25.0-35.0); MCHC 32.5 g/dL (31.0-37.0); MCV 87.3 fL (80.0-100.0); Mean Platelet Volume 7.8; Monocytes # (A) 0.8 k/uL (0-1.0); Monocytes % (A) 7 %; Neutrophils # (A) 8.6 k/uL (1.3-7.7); Neutrophils % (A) 79 %; WBC 10.9 k/uL (3.8-10.6); WBC (Perox) 11.96
--- NOTE | 2016-07-24 08:43 | P.PN ---
Subjective Principal diagnosis: Status post right total hip arthroplasty This is a 55 year-old male post total hip arthroplasty. This is post-op day 1. The patient was evaluated at the bedside today. The patient denies nausea, vomiting, abdominal pain, shortness of breath, and chest pain this morning. He states his pain is controlled at this time. The patient has not been up with physical therapy.yet this morning but did sit in recliner chair last night. Objective - Vital Signs Vital signs: Vital Signs Temp 97.6 F 07/24/16 07:00 Pulse 70 07/24/16 07:00 Resp 16 07/24/16 07:00 BP 148/88 07/24/16 07:00 Pulse Ox 97 07/24/16 08:11 Intake & Output 07/23/16 07/24/16 07/24/16 18:59 06:59 18:59 Intake Total 2441 900 Output Total 2690 2750 Balance -249 -1850 Weight 100.244 kg Intake: IV 2201 900 Lactated Ringers 1,000 ml 400 900 @ 100 mls/hr IV .Q10H FREDY Rx#:[id number] Oral 240 Output: Urine 2240 2750 Uretheral (Loza) 1600 2750 Estimated Blood Loss 450 Other: Voiding Method Indwelling Catheter Indwelling Catheter - Exam The patient does not appear in acute distress. Alert and orientated x3. Dressing is clean dry and intact. Incision appears fine with no erythema or active drainage. Calf is soft and nontender. Good foot and ankle motion without difficulty. Sensation and circulatory status is intact. - Labs CBC & Chem 7: 07/24/16 06:37 Labs: Abnormal Lab Results - Last 24 Hours (Table) 07/24/16 Range/Units 06:37 WBC 10.9 H (3.8-10.6) k/uL Neutrophils # 8.6 H (1.3-7.7) k/uL Assessment and Plan (1) Primary osteoarthritis of right hip Status: Acute (2) Status post right hip replacement Status: Acute Plan: 1. Continue pain control 2. Anticoagulation with Coumadin per protocol 3. Start physical therapy and ambulation 4. Anticipate discharge home with homecare in the next 1-2 days.
[2016-07-24] MEDS: LACTATED RINGERS 1,000 ML IV SCH ×2 (08:44→17:51)
[2016-07-24 08:57] LABS: INR 1.5 (<1.1); Prothrombin Time 14.7 sec (9.0-12.0)
[2016-07-24] MEDS ORDERED: WARFARIN 5 MG TAB PO ONE (18:00)
[2016-07-24] MEDS: SENNOSIDES-DOCUSATE SODIUM 1 EACH TAB PO SCH (20:15)
[2016-07-25] MEDS: LACTATED RINGERS 1,000 ML IV SCH ×3 (00:37→20:34)
[2016-07-25] MEDS: hydrOXYzine PAMOATE 25 MG CAP PO PRN ×2 (01:12→21:01)
[2016-07-25] MEDS: HYDROcodone/APAP 7.5-325MG 1 EACH TAB PO PRN ×4 (01:12→21:01)
[2016-07-25 07:03] LABS: INR 1.5 (<1.1); Prothrombin Time 14.3 sec (9.0-12.0)
--- NOTE | 2016-07-25 08:30 | P.PN ---
Subjective Principal diagnosis: Status post right total hip arthroplasty This is a 55 year-old male post total hip arthroplasty. This is post-op day 2. The patient was evaluated at the bedside today. The patient denies nausea, vomiting, abdominal pain, shortness of breath, and chest pain this morning. He states his pain is controlled at this time. The patient has ambulated with physical therapy in the hallway. Objective - Vital Signs Vital signs: Vital Signs Temp 99.6 F 07/25/16 01:10 Pulse 92 07/25/16 01:10 Resp 16 07/25/16 01:10 BP 132/71 07/25/16 01:10 Pulse Ox 94 L 07/25/16 01:10 Intake & Output 07/24/16 07/25/16 07/25/16 18:59 06:59 18:59 Intake Total 720 100 Output Total 850 600 Balance -130 -500 Intake: Oral 720 100 Output: Urine 850 600 Uretheral (Loza) 450 Other: Voiding Method Indwelling Catheter Toilet Toilet Urinal Urinal # Voids 1 - Exam The patient does not appear in acute distress. Alert and orientated x3. Dressing is clean dry and intact. Incision appears fine with no erythema or active drainage. Calf is soft and nontender. Good foot and ankle motion without difficulty. Sensation and circulatory status is intact. - Labs CBC & Chem 7: 07/24/16 06:37 Labs: Abnormal Lab Results - Last 24 Hours (Table) 07/24/16 07/25/16 Range/Units 06:37 06:36 PT 14.7 H 14.3 H (9.0-12.0) sec Laboratory Tests 07/25/16 06:36 PT 14.3 H INR 1.5 Assessment and Plan (1) Primary osteoarthritis of right hip Status: Acute (2) Status post right hip replacement Status: Acute Plan: 1. Continue pain control 2. Anticoagulation with Coumadin per protocol 3. Continue physical therapy and ambulation 4. Anticipate discharge home with homecare tomorrow
[2016-07-25] MEDS ORDERED: WARFARIN 5 MG TAB PO ONE (18:00)
[2016-07-25] MEDS: SENNOSIDES-DOCUSATE SODIUM 1 EACH TAB PO SCH (20:34)
--- NOTE | 2016-07-25 21:04 | OP ---
DATE OF SERVICE: 07/23/2016 SURGEON: ELENA WATKINS DO FILM LOADER: Tiffanie Carrillo NP PREOPERATIVE DIAGNOSIS: Degenerative joint disease of the right hip POSTOPERATIVE DIAGNOSIS: Degenerative joint disease of the right hip OPERATION: Right total hip replacement arthroplasty utilizing Suni press Fit component with a ceramic head and polyethylene cup ANESTHESIA: ESTIMATED BLOOD LOSS: SPECIMENS REMOVED: COMPLICATIONS: OPERATIVE FINDINGS: DESCRIPTION OF PROCEDURE: The patient was taken to the operating room suite and placed in supine position. Spinal anesthesia was performed by the Department of Anesthesia. The patient was placed in a recumbent position and secured to surgical table. Betadine prep was carried out over the right hip and sterile drapes applied in the usual manner. A longitudinal incision was developed over the proximal femur and greater trochanter. Sharp dissection through the subcutaneous tissue was carried out. Tensor fascia forest was incised longitudinally and a Charnley self-retaining retractor was inserted. Gluteus medius was identified and dissected along the superior trochanter. The anterior capsule was identified and excised. Femoral head was then dislocated and placed in adduction position. The neck of the femur was shaped with a bone saw in preparation for component . The box chisel was utilized in preparing canal. Gradually the bone tip was removed and size 13 femoral stem. Broaching of the canal was carried out in preparation for an LM13 stem component. Nicely shaped with shelving planer. The acetabulum was then approached and inspected and identified in preparation for a size 56 press fit and metal back component. The area was irritated copiously with Pulsavac antibiotic solution. Final trabecular metal size 56 cup was then placed into position, retracted and maintained stability and alignment. Two screws were utilized in securing the cup. The final 13 mm polyethylene component was impacted. The leg was than adducted and trial femoral stem size 13 is impacted into position with size 3.5 ceramic head. The hip was reduced and the noted to be well aligned and stable. The hip was then dislocated and the trial components were removed. Area was irrigated copiously with Pulsavac antibiotic solution. The final size 13 femoral component was impacted into position. The 3.5 ceramic head was impacted along the trunion. The hip was reduced and alignment and stability were well maintained. Irrigation was performed and leg was placed in adduction in stable position. The gluteus medius was reapproximated with 33 Vicryl suture. The muscles were reapproximated with #3 Vicryl suture. The tensor fascia forest was then approximated with #3 Vicryl suture in a horizontal mattress fashion. The #2 Quill suture was utilized repair. 2-0 Vicryl suture was used for subcutaneous tissue in a single interrupted fashion. The skin was approximated with 3-0 Quill suture in a subcuticular fashion. Skin was sealed with Dermabond. Sterile dressings applied. The patient was placed in abductor pillow splint and transferred to recovery room in satisfactory postop condition. GROSS PATHOLOGY: Severe degenerative joint disease right hip. Estimated blood loss 300 mL. Cell saver was utilized approximately 120. MTDD
[2016-07-26] MEDS: HYDROcodone/APAP 7.5-325MG 1 EACH TAB PO PRN (03:34)
[2016-07-26] MEDS: hydrOXYzine PAMOATE 25 MG CAP PO PRN (03:35)
[2016-07-26 07:42] VITALS: BP 152/79; PULSE 91; RESP 17; TEMP 98.6
[2016-07-26 07:51] LABS: INR 1.6 (<1.1); Prothrombin Time 15.1 sec (9.0-12.0)
[2016-07-26 07:58] LABS: Basophils # (A) 0.1 k/uL (0-0.2); Basophils % (A) 1 %; CH 29.8; CHCM 34.3; Eosinophils # (A) 0.2 k/uL (0-0.7); Eosinophils % (A) 2 %; HCT 40.6 % (39.0-53.0); HDW 2.75; Luc # (Auto) 0.39; Luc % (Auto) 4; Lymphocytes # (A) 1.9 k/uL (1.0-4.8); Lymphocytes % (A) 20 %; MCH 30.1 pg (25.0-35.0); MCHC 34.5 g/dL (31.0-37.0); MCV 87.3 fL (80.0-100.0); Mean Platelet Volume 8.3; Monocytes % (A) 11 %; Neutrophils # (A) 5.9 k/uL (1.3-7.7); Neutrophils % (A) 62 %; RBC 4.65 m/uL (4.30-5.90); WBC 9.4 k/uL (3.8-10.6); WBC (Perox) 9.63
--- NOTE | 2016-07-26 08:23 | P.DS ---
Providers Date of admission: 07/23/16 05:54 Expected date of discharge: 07/26/16 Attending physician: Jesús Castrejon Consults: 07/23/16 09:44 Consult Physician Routine Consulting Provider: Shaniqua Hodge Consult Reason/Comments: medical management Do you want consulting provider notified?: Yes Primary care physician: Bryanna Mckinley - Discharge Diagnosis(es) (1) Primary osteoarthritis of right hip Current Visit: Yes Status: Acute (2) Status post right hip replacement Current Visit: Yes Status: Acute Hospital Course: This is a 55-year-old male with known history of degenerative arthritis of the right hip. The patient presents for evaluation. After discussion and consideration patient elects to proceed with total hip arthroplasty. The patient is seen preoperatively by Dr. Mckinley and cleared for surgery. Patient is [facility] to [facility] on 07/23/2016 for total hip arthroplasty. The procedures performed without complication or sequelae. The patient is doing well postoperatively. Labs and vital signs are stable on day of discharge. On day of discharge patient's hip incision is healing well. There is minimal erythema. There is no drainage noted at this time. There is minimal soft tissue swelling to the hip and thigh. Patient has full foot and ankle motion without difficulty or pain. Neurovascular status to the right lower extremity is intact. Patient is discharged to home with homecare in good condition. Pertinent Studies: Laboratory Tests 07/26/16 07/26/16 07:12 07:12 WBC 9.4 RBC 4.65 Hgb 14.0 Hct 40.6 PT 15.1 H INR 1.6 Patient Condition at Discharge: Stable Plan - Discharge Summary New Discharge Prescriptions: Aspirin 325 mg PO DAILY #30 tab HYDROcodone/APAP 7.5-325MG [[place] 7.5-325] 1 - 2 tab PO Q4-6H PRN #60 tab PRN Reason: Pain Sennosides-Docusate Sodium [Senokot-S] 2 tab PO DAILY #30 tablet Warfarin [Coumadin] 2.5 mg PO DIRECTED #30 tab Discharge Medication List Omeprazole 20 mg PO DAILY 09/06/15 [History] HYDROcodone/APAP 5-325MG [[place] 5-325] 1 tab PO Q4HR PRN 07/23/16 [History] Aspirin 325 mg PO DAILY #30 tab 07/26/16 [Rx] HYDROcodone/APAP 7.5-325MG [[place] 7.5-325] 1 - 2 tab PO Q4-6H PRN #60 tab [Rx] Sennosides-Docusate Sodium [Senokot-S] 2 tab PO DAILY #30 tablet 07/26/16 [Rx] Warfarin [Coumadin] 2.5 mg PO DIRECTED #30 tab 07/26/16 [Rx] Follow up Appointment(s)/Referral(s): Jesús Castrejon DO [Doctor of Osteopathic Medicine] - 08/05/16 1:20 pm [facility], [NON-STAFF] - 1 Week Activity/Diet/Wound Care/Special Instructions: Walker - has at home Weightbearing as tolerated with a walker Coumadin 2.5 mg 1 by mouth every other day for 7 days then take Aspirin 325mg daily for 1 month Follow Hip precautions Use Abductor pillow as instructed May shower in 3 days if no drainage from incision Keep incision clean and dry Call [facility] [phone] with questions or concerns Discharge Disposition: HOME WITH HOME HEALTH SERVICES
--- NOTE | 2016-07-26 21:00 | PN ---
DATE OF SERVICE: 07/26/2016 This 55-year-old gentleman who was admitted with after right knee arthroplasty is improving significantly. No chest pain or palpitation. No fever. On exam, alert and oriented times three. Pulse 91, blood pressure 115/72, respiratory rate 17, temperature 98.6, pulse ox 97% on room air. HEENT: Conjunctivae normal. NECK: No jugular venous distention. CARDIOVASCULAR: S1, S2 muffled. RESPIRATORY: Breath sounds diminished at the bases. No rhonchi. No crackles. ABDOMEN: Soft, nontender. LEGS: Status post knee arthroplasty. CENTRAL NERVOUS SYSTEM: No focal deficits. LABS: INR 1.3, CBC within normal limits. ASSESSMENT: 1. Status post right knee arthroplasty. 2. Gastroesophageal reflux disease. 3. Increased WBC improved. 4. Labile hypertension. RECOMMENDATIONS AND DISCUSSION: In this 55-year-old gentleman who presented with multiple complex medical issues, we will monitor the patient closely. Continue the current medications, continue symptomatic treatment. Otherwise, at this time, I would recommend resume the home medications, closely follow with Dr. Mckinley in the outpatient setting. Monitor blood pressure closely. Further recommendations to follow.
== END 2016-07-26 12:32 | disposition home health service (06) | DRG 470 ==
LOC: 2ORMAIN 05:54 → 3SUR 09:42
PROVIDERS: ADMIT Orthopaedic Surgery; ATTEND Orthopaedic Surgery
PROC: 0SR904A Replacement of Right Hip Joint with Ceramic on Polyethylene Synthetic Substitute, Uncemented, Open Approach (ICD-10-PCS; principal; 2016-07-23 07:00)
DX: M16.11 Unilateral primary osteoarthritis, right hip (principal); I10 Essential (primary) hypertension; F17.200 Nicotine dependence, unspecified, uncomplicated; K21.9 Gastro-esophageal reflux disease without esophagitis; Z96.651 Presence of right artificial knee joint; S73.191A Other sprain of right hip, initial encounter; Z79.899 Other long term (current) drug therapy
CPT/HCPCS: 73501; 85025; 85610; 86891; 88300; 94760

== ENCOUNTER → 2020-03-09 | Outpatient (CLI) | payer OTHER ==
[2020-03-09 16:13] LABS: Partial Thromboplastin Time 23.1 sec (22.0-30.0); Prothrombin Time 9.9 sec (9.0-12.0)
[2020-03-09 16:18] LABS: Appearance,Urine Clear (Clear); Bilirubin,Urine Negative (Negative); Blood,Urine Negative (Negative); Color,Urine Yellow; Glucose,Urine (UA) Negative (Negative); Ketones,Urine Negative (Negative); Leukocyte Esterase,Urine Negative (Negative); Nitrite,Urine Negative (Negative); PH, Urine 5.5 (5.0-8.0); Protein,Urine Negative (Negative); Specific Gravity,Urine 1.023 (1.001-1.035)
== END | disposition home or self-care (01) ==
LOC: LABPAT 15:01
PROVIDERS: ATTEND Orthopaedic Surgery
DX: Z01.818 Encounter for other preprocedural examination (principal); M17.12 Unilateral primary osteoarthritis, left knee; Z01.812 Encounter for preprocedural laboratory examination
CPT/HCPCS: 36415; 81003; 85610; 85730; 87070

== ENCOUNTER 2020-03-16 12:10 | Emergency (ER) | payer OTHER ==
[2020-03-16 12:32] VITALS: BP 140/67; PULSE 66; RESP 16; TEMP 98.1
[2020-03-16] MEDS ORDERED: DIPH,PERTUS(ACELL)TETVAC-LF 0.5 ML VIAL IM ONE (12:50)
[2020-03-16] MEDS ORDERED: LIDOCAINE 1% INJ 10MG/ML (20 ML MDV) SQ ONE (12:50)
--- NOTE | 2020-03-16 12:52 | ED ---
Wound/Laceration HPI - General Chief Complaint: Wound/Laceration Stated Complaint: wrist lac Time Seen by Provider: 03/16/20 12:43 Source: patient, RN notes reviewed Mode of arrival: ambulatory Limitations: no limitations - History of Present Illness Initial Comments: 59-year-old male presents emergency Department with chief complaint of right wrist laceration. He was opening a package for sawblade in which the plastic covers laceration to his wrist. No active bleeding he is not up-to-date on his tetanus. Patient has no numbness any no weakness and he states it is not painful at this time. - Related Data Home Medications Medication Instructions Recorded Confirmed Omeprazole 20 mg PO DAILY 09/06/15 03/13/20 Acetaminophen Tab [Tylenol] 650 mg PO Q4H PRN 03/13/20 03/13/20 Ibuprofen [Advil] 200 - 400 mg PO Q8HR PRN 03/13/20 03/13/20 Allergies Allergy/AdvReac Type Severity Reaction Status Date / Time No Known Allergies Allergy Verified 03/16/20 13:01 Review of Systems ROS Statement: Those systems with pertinent positive or pertinent negative responses have been documented in the HPI. ROS Other: All systems not noted in ROS Statement are negative. Past Medical History Past Medical History: GERD/Reflux, Osteoarthritis (OA) Additional Past Medical History / Comment(s): Pt states, "I am scheduled to get hip replacement next week" History of Any Multi-Drug Resistant Organisms: None Reported Past Surgical History: Cholecystectomy, Joint Replacement Additional Past Surgical History / Comment(s): total right hip Past Anesthesia/Blood Transfusion Reactions: No Reported Reaction Additional Past Anesthesia/Blood Transfusion Reaction / Comment(s): no surg. Past Psychological History: No Psychological Hx Reported Smoking Status: Never smoker Past Alcohol Use History: Occasional Past Drug Use History: None Reported - Past Family History Mother Family Medical History: No Reported History Additional Family Medical History / Comment(s): Replaced heart valve Father Additional Family Medical History / Comment(s): Heart murmur Brother(s) Family Medical History: Cancer Additional Family Medical History / Comment(s): COLON CANCER General Exam Limitations: no limitations General appearance: alert, in no apparent distress Head exam: Present: atraumatic, normocephalic, normal inspection Eye exam: Present: normal appearance, PERRL, EOMI. Absent: scleral icterus, conjunctival injection, periorbital swelling Respiratory exam: Present: normal lung sounds bilaterally. Absent: respiratory distress, wheezes, rales, rhonchi, stridor Cardiovascular Exam: Present: regular rate, normal rhythm, normal heart sounds. Absent: systolic murmur, diastolic murmur, rubs, gallop, clicks Extremities exam: Present: other (Right wrist volar aspect there is a 3 cm laceration no active bleeding there is no deep tendon involvement) Skin exam: Present: warm, dry, intact, normal color. Absent: rash Course Vital Signs 03/16/20 12:29 Temperature 98.1 F Pulse Rate 66 Respiratory 16 Rate Blood Pressure 140/67 O2 Sat by Pulse 98 Oximetry Procedures - Laceration Laceration #1 Consent Obtained: verbal consent Indication: laceration Site: upper extremity (Right wrist) Size (cm): 3 Description: linear Depth: simple, single layer Anesthetic Used: lidocaine 1%, without epi Anesthesia Technique: local infiltration Amount (mls): 4 Pre-repair: wound explored, irrigated extensively, deep structures intact Type of Sutures: nylon Size of Sutures: 4-0 Number of Sutures: 3 Technique: simple, interrupted Patient Tolerated Procedure: well, no complications Medical Decision Making - Medical Decision Making 59-year-old presented for right wrist laceration this was thoroughly cleaned, closed no complications wound care and return parameters were given tetanus was updated Disposition Clinical Impression: Laceration of right wrist Disposition: HOME SELF-CARE Condition: Stable Instructions (If sedation given, give patient instructions): Laceration (ED), Care For Your Stitches (ED) Additional Instructions: Have sutures removed in 10 days.Please return to the Emergency Department if symptoms worsen or any other concerns. Is patient prescribed a controlled substance at d/c from ED?: No Referrals: Bryanna Mckinley MD [Primary Care Provider] - 1-2 days Time of Disposition: 13:06
== END 2020-03-16 13:21 | disposition home or self-care (01) ==
LOC: EC 12:10
DX: S61.511A Laceration without foreign body of right wrist, initial encounter (principal); K21.9 Gastro-esophageal reflux disease without esophagitis; Z23 Encounter for immunization; Z79.899 Other long term (current) drug therapy; W31.89XA Contact with other specified machinery, initial encounter
CPT/HCPCS: 90715; 99282; 12002; 90471; J2001

== ENCOUNTER 2020-03-20 12:47 | Day surgery (SDC) | payer OTHER ==
[2020-03-13 16:21] VITALS: BMI 33.5
[~2020-03-20 12:47] MED LIST changes: +ACETAMINOPHEN TAB 500 MG TAB PO ONE; -DEXAMETHASONE SOD PHOSPHATE 10 MG/ML 1 ML VIAL IV ONE; -FAMOTIDINE 20 MG/2 ML VIAL IV PRN; +GABAPENTIN 300 MG CAP PO ONE; +HYDROmorphone 0.5 MG/0.5 ML SYRINGE IVP PRN; -HYDROmorphone 1 MG/ML 1 ML SYRINGE IVP PRN; -LACTATED RINGERS 1,000 ML IV SCH; +LIDOCAINE 1% (10MG/ML) FOR IV START INTRADERMA PRN; -LIDOCAINE 1% 20 ML VIAL (10MG/ML) FOR IV START INTRADERMA PRN; +MELOXICAM 7.5 MG TAB PO ONE; -MIDAZOLAM 2 MG/2 ML VIAL IV PRN; -SCOPOLAMINE 1.5MG/72HR PATCH TRANSDERM ONE; +TRANEXAMIC ACID 1,000 MG in SODIUM CHLORIDE 0.9% 100 ML IVPB ONE; -ceFAZolin 2 GM in SODIUM CHLORIDE 0.9% 100 ML IVPB ONE
[2020-03-20] MEDS: LACTATED RINGERS 1,000 ML IV SCH ×2 (13:59→21:21)
[2020-03-20] MEDS ORDERED: DEXAMETHASONE SOD PHOSPHATE 4 MG/ML 1 ML VIAL IVP ONE (14:05)
[2020-03-20] MEDS ORDERED: MIDAZOLAM 2 MG/2 ML VIAL IVP ONE (14:34)
[2020-03-20] MEDS ORDERED: ePHEDrine SULFATE/0.9% NACL/PF 50 MG/5 ML SYRINGE IV ONE (14:40)
[2020-03-20] MEDS ORDERED: SODIUM CHLORIDE 0.9% 100 ML BAG ONE (14:40)
[2020-03-20] MEDS ORDERED: MIDAZOLAM 2 MG/2 ML VIAL ONE (14:40)
[2020-03-20] MEDS ORDERED: PROPOFOL 10 MG/ML 20 ML VIAL IV ONE (14:40)
[2020-03-20] MEDS ORDERED: fentaNYL (PF) 50 MCG/ML 2 ML AMP ONE (14:40)
[2020-03-20] MEDS ORDERED: TRANEXAMIC ACID 1,000 MG/10 ML VIAL ONE (14:40)
[2020-03-20] MEDS: ROPIVACAINE 246.25 MG, EPINEPHrine 0.5 MG, KETOROLAC 30 MG, cloNIDine HCL/PF 80 MCG, WA... MISCELLANE ONE ×10 (15:19→16:14)
[2020-03-20] MEDS ORDERED: ceFAZolin 3,000 MG in SODIUM CHLORIDE 0.9% IRRIGATIO 3,000 ML IRRIGATION ONE (15:52)
--- NOTE | 2020-03-20 16:36 | P.OP ---
Date of Procedure: 03/20/20 Procedure(s) Performed: PREOPERATIVE DIAGNOSIS: Left knee severe osteoarthritis with genu varum POSTOPERATIVE DIAGNOSIS: Left knee severe osteoarthritis with genu varum OPERATION: Left knee cemented total replacement arthroplasty. ANESTHESIA: Spinal ESTIMATED BLOOD LOSS: 50 ml. BEEF GRINDER: Xiomara France PA-C (assistance with: patient positioning, retraction, exposure, hemostasis, leg positioning, implantation, irrigation, closure, dressing) COMPLICATIONS: None apparent. COMPONENTS IMPLANTED: Persona system from Suni INDICATIONS: Rosalio is a 59 year old male with a history of left knee osteoarthritis. Conservative treatment has been tried and has been unsuccessful in controlling symptoms adequately. The operation of knee replacement has been discussed at length in the office, as well as potential risks and complications. These are inclusive of, but not limited to: bleeding, infection, scarring, discomfort, blood vessel and nerve damage, need for further surgery, failure to relieve symptoms, persistence, recurrence, or worsening of problems, loosening, dislocation, wear, blood clot, pulmonary embolism, , gait dysfunction, stiffness, and other risks as discussed in the office. The patient elects to proceed and the consent form has been signed. PROCEDURE: The patient was taken to the operating room and positioned on the operating room table in the supine position. Anesthesia was initiated. Care was taken to make sure that all pressure points were adequately padded. The operative lower extremity was prepped and draped in the usual aseptic fashion using ChloraPrep. Ioban drape was used for the case and the patient received intravenous antibiotics within one hour of the incision. A pneumotourniquet and leg naidu were used for the case. The limb was exsanguinated with an Esmarch bandage and the tourniquet was inflated to 350 mmHg. Time-out was called confirming the patient's identity, side, procedure and administration of antibiotics and tranexamic acid, 1 g IV. The incision was then created midline directly over the knee, carried down through skin and into the subcutaneous tissues and down to fascia. Full thickness subcutaneous medial flap was developed. Medial parapatellar arthrotomy was performed and the interior of the knee was inspected. There was end-stage osteoarthritis of the knee with a mild to moderate genu varum type deformity. The fat pad was excised and proximal medial release on the tibia was completed using meticulous dissection and a curved osteotome. The anterior cruciate ligament was taken down. Note was made of significant attrition of the anterior and significant degenerative appearance of the posterior cruciate ligaments. The exposure was excellent. The knee was flexed 90 degrees and the patella was everted. A spot was chosen on the femur approximately 1 cm anterior to the posterior cruciate ligament ins ertion and an intramedullary hole was created within the femur. The intramedullary guide was then set to 5 degrees of valgus. The distal cutting block was attached and pinned into position. An appropriate amount of distal femoral resection was set. The oscillating saw was then used to make the distal femoral cut. This cut was confirmed to be flat with the flat end of an osteotome. The retractors were placed around the tibia and the tibial surface was addressed. The angle and depth of resection was adjusted using an extramedullary cutting guide. The guide had a built-in 3 degree posterior slope cut. Once the cutting guide was adjusted appropriately and in line with the axis of the tibia and confirmed to be in good position in relation to the second metatarsal and transmalleolar axis, the tibial cut was then created with protection of the posterior neurovascular structures and the collateral ligaments. The tibial cut surface was removed and sized. Femoral sizing was then accomplished using anterior referencing. Care was taken to analyze the posterior condyles for signs of deficiency or severe wear, and adjustments to the guide were made, as appropriate. 3 degree external rota tion pins were placed. The cutting jig for the femur was applied to these pins. The planned cuts were further analyzed prior to performing them with the oscillating saw. No femoral notching was produced. Bone fragments were removed and the cut surfaces were finished, as necessary, with a reciprocating saw. Spacer block technique was then used to confirm that the flexion and extension gaps were equal. Soft tissue releases and adjustment of the tibial and/or femoral cuts were made, as necessary, until the gaps were equal. This included release of the posterior cruciate ligament, which was tight in this patient. The femur was then further finished for a posterior cruciate ligament substituting component. Patellar resurfacing was performed using a reamer. The size of the required patellar component was estimated and the patellar surface was then reamed down to a residual thickness which would recreate the [place] thickness with the component. The exact placement of the patellar component was adjusted for position based on preoperative x-rays and intraoperative findings. Prior to placing trial components, anesthetic solution consisting of ropivicaine with epinephrine, ketorolac, and clonidine was injected carefully and methodically in a grid pattern using aspiration technique into the soft tissue around the knee circumferentially, starting with the deeper tissues first and progressing to fascia, and then finally the skin/subcutaneous tissue. Particular care was taken when injecting the posterior capsule. The trial components were inserted. The tibial tray was allowed to self center and the patella was noted to track very well. The position of the tibial component was marked and the tibia was then finished for a stemmed tibial component. Cement was mixed on the back table and applied to the final components. Trial components were removed and the cut surfaces of the bone were pulse lavaged thoroughly and dried. Cement was then applied to the tibial surface and pressurized into the surface using finger pressurization technique. The tibial component was then applied and excess cement was removed after it was impacted securely and noted to be flush with the cut surface. In similar fashion, the cement was applied to the cut femoral surface, pressurized in using finger pressurization and the component was impacted into place. Excess cement was removed. The polyethylene spacer was then implanted and locked into position. The patellar component was then applied in similar technique and a patellar clamp was used to hold the patella in place as the cement hardened. Once the cement had fully hardened, the knee was reinspected. Any other cement extrusion was removed and final kinematic testing showed range of motion from 0 to 130 degrees with excellent stability, both medially and laterally and appropriate alignment of the leg. Patellar tracking was excellent. The knee was then thoroughly pulse lavaged with normal saline. The tourniquet was deflated and hemostasis was obtained with electrocautery and IV tranexamic acid, 1 g given prior to inflation of the tourniquet and another gram given at the time of closure. Closure was with #2 Ethibond in the fascia and supplemented with #2 Quill, 2-0 Vicryl suture was used for the subcutaneous tissues and 3-0 Quill for the skin. Dermabond/Steri-Strips were then applied. A lightly compressive dressing was applied using Webril and an Amol wrap. The patient was then transferred to stretcher and taken to the recovery room in stable condition. Sponge and needle counts were correct.
[2020-03-20] MEDS ORDERED: LACTATED RINGERS 1,000 ML IV ONE (16:43)
[2020-03-20] MEDS ORDERED: ROPIVACAINE 0.2%-NS ON-Q PUMP 1,090 MG, EMPTY PAIN BALL 1 EACH MISCELLANE PRN (16:52)
--- NOTE | 2020-03-20 16:54 | P.ANPRN ---
Procedure Note - Anesthesia - Nerve Block Performed Left Adductor Canal Infusion Time Out Performed: Yes Date of Procedure: 03/20/20 Procedure Start Time: 14:31 Procedure Stop Time: 14:43 Location of Patient: PreOp Indication: Acute Post-Operative Pain, Requested by Surgeon Sedation Type: Sedate with meaningful contact maintained Preparation: Sterile Prep Position: Supine Catheter: Indwelling Needle Types: On-Q Needle Gauge: 21 Ultrasound used to visualize needle placement: Yes Ultrasound used to observe medication spread: Yes Blood Aspirated: No Pain Paresthesia on Injection Noted: No Resistance on Injection: Normal Image Stored and Saved: Yes Events: Uneventful and Well Tolerated (dexamethasone 4mg plus ropi .5% 20cc)
[2020-03-20] MEDS ORDERED: NALOXONE 0.4 MG/ML 1 ML VIAL IV PRN (17:02)
[2020-03-20] MEDS ORDERED: HYDROmorphone 0.5 MG/0.5 ML SYRINGE IVP PRN ×2 (17:02)
[2020-03-20] MEDS ORDERED: NA PHOS,M-B/NA PHOS,DI-BA 133 ML ENEMA RECTAL PRN (17:02)
[2020-03-20] MEDS ORDERED: HYDROcodone/APAP 7.5-325MG 1 EACH TAB PO PRN (17:02)
[2020-03-20] MEDS ORDERED: HYDROmorphone 1 MG/ML 1 ML SYRINGE IVP PRN (17:02)
[2020-03-20] MEDS ORDERED: HYDROcodone/APAP 5-325MG 1 EACH TAB PO PRN (17:02)
[2020-03-20] MEDS ORDERED: MAGNESIUM HYDROXIDE 2,400 MG/10 ML CUP PO PRN (17:02)
[2020-03-20] MEDS ORDERED: ONDANSETRON 4 MG/2 ML VIAL IVP PRN (17:02)
[2020-03-20] MEDS ORDERED: hydrOXYzine pamoate 25 MG CAP PO PRN (17:02)
[2020-03-20] MEDS ORDERED: bisacodyL 10 MG SUPP RECTAL PRN (17:02)
--- NOTE | 2020-03-20 18:05 | XR ---
Left knee HISTORY: Postop 2 views left knee Patient is status post left knee arthroplasty. There is anatomic alignment. Lucency is present in the soft tissues. IMPRESSION: Orthopedic follow-up
[2020-03-20] MEDS ORDERED: SENNOSIDES-DOCUSATE SODIUM 1 EACH TAB PO SCH (21:00)
[2020-03-20] MEDS: ASPIRIN 81 MG PO SCH (22:36)
[2020-03-21 01:22] VITALS: PULSE 76; RESP 16; TEMP 97.6
[2020-03-21] MEDS: LACTATED RINGERS 1,000 ML IV SCH ×3 (05:14→08:38)
[2020-03-21 06:52] LABS: Basophils % (A) 0 %; Eosinophils # (A) 0.1 k/uL (0-0.7); Eosinophils % (A) 0 %; HCT 45.4 % (39.0-53.0); HGB 14.8 gm/dL (13.0-17.5); Lymphocytes % (A) 7 %; MCH 29.5 pg (25.0-35.0); MCHC 32.5 g/dL (31.0-37.0); MCV 90.7 fL (80.0-100.0); Mean Platelet Volume 8.6; Monocytes # (A) 0.7 k/uL (0-1.0); Monocytes % (A) 5 %; Neutrophils # (A) 13.2 k/uL (1.3-7.7); Neutrophils % (A) 87 %; Platelet Count 176 k/uL (150-450); RBC 5.01 m/uL (4.30-5.90); RDW 12.3 % (11.5-15.5); WBC 15.1 k/uL (3.8-10.6)
--- NOTE | 2020-03-21 07:33 | P.PN ---
Progress Note - Text 03/21/20 702am 59-year-old male status post total knee replacement by Dr. Harry. Patient has an On-Q pump for postop pain control with the solution running at 8 mL an hour with a VAS of 1. Plan to continue On-Q pump infusion
[2020-03-21 07:38] VITALS: BP 117/70
[2020-03-21] MEDS: ASPIRIN 81 MG PO SCH (08:35)
[2020-03-21] MEDS ORDERED: MELOXICAM 7.5 MG TAB PO SCH (09:00)
--- NOTE | 2020-03-21 09:11 | P.DS ---
Providers Expected date of discharge: 03/21/20 Attending physician: Martir Harry Consults: 03/20/20 17:02 Consult Physician Routine Consulting Provider: Bryanna Mckinley Consult Reason/Comments: Medical management Do you want consulting provider notified?: Yes 03/20/20 21:18 Consult Physician Routine Consulting Provider: Shaniqua Hodge Consult Reason/Comments: medical management Do you want consulting provider notified?: Yes Primary care physician: Bryanna Mckinley - Discharge Diagnosis(es) (1) Primary localized osteoarthritis of left knee Current Visit: Yes Status: Acute (2) Status post total left knee replacement Current Visit: Yes Status: Acute Hospital Course: This is a 59-year-old male who was last seen with complaint of continued left knee pain. The patient has a known history of degenerative arthritis of the left knee and presents to discuss surgical options. After discussion and consideration the patient elects to proceed with total left knee arthroplasty. The patient is seen preoperatively by Dr. Umanzor and cleared for surgery. The patient is admitted to [facility] for total left knee arthroplasty. The procedures performed without complication or sequelae. He is doing well postoperatively. Vital signs are stable at discharge. White blood cell count is 15.1 on postoperative day #1. Otherwise labs are stable. The patient has no systemic symptoms. The patient is ambulating well with walker with minimal ass istance. The patient is discharged to home on postop day #1 pending medical clearance. Please see orders and refer to the [facility] rec for accurate list of medications. Plan - Discharge Summary Discharge Rx Participant: Yes New Discharge Prescriptions: New Aspirin [Adult Low Dose Aspirin EC] 81 mg PO BID #1 tablet. Meloxicam [Mobic] 1 - 2 tab PO DAILY PRN #30 tab PRN Reason: Pain HYDROcodone/APAP 7.5-325MG [[place] 7.5-325] 1 - 2 tab PO Q6HR PRN #42 tab PRN Reason: Pain Sennosides-Docusate Sodium [Senokot-S] 1 tab PO BID #60 tablet No Action Omeprazole 20 mg PO DAILY Acetaminophen Tab [Tylenol] 650 mg PO Q4H PRN PRN Reason: Pain Ibuprofen [Advil] 200 - 400 mg PO Q8HR PRN PRN Reason: Pain Discharge Medication List Omeprazole 20 mg PO DAILY 09/06/15 [History] Acetaminophen Tab [Tylenol] 650 mg PO Q4H PRN 03/13/20 [History] Ibuprofen [Advil] 200 - 400 mg PO Q8HR PRN 03/13/20 [History] Aspirin [Adult Low Dose Aspirin EC] 81 mg PO BID #1 tablet.dr 03/20/20 [Rx] HYDROcodone/APAP 7.5-325MG [[place] 7.5-325] 1 - 2 tab PO Q6HR PRN #42 tab 03/20/20 [Rx] Meloxicam [Mobic] 1 - 2 tab PO DAILY PRN #30 tab 03/20/20 [Rx] Sennosides-Docusate Sodium [Senokot-S] 1 tab PO BID #60 tablet 03/20/20 [Rx] Follow up Appointment(s)/Referral(s): Xiomara France, PAC [PHYSICIAN GRADUATE FELLOW] - 2 Weeks Activity/Diet/Wound Care/Special Instructions: May bear wt as tolerated w walker. May shower 48h post op. Keep optifoam in place 7-10 days. Discharge Disposition: HOME WITH HOME HEALTH SERVICES
== END 2020-03-21 12:13 | disposition home health service (06) ==
LOC: OR 12:47 → 4SSUR 21:04 → OR 03-21 12:13
PROVIDERS: ATTEND Orthopaedic Surgery
DX: M17.12 Unilateral primary osteoarthritis, left knee (principal); M21.062 Valgus deformity, not elsewhere classified, left knee; K21.9 Gastro-esophageal reflux disease without esophagitis; Z97.3 Presence of spectacles and contact lenses; Z96.641 Presence of right artificial hip joint; Z90.49 Acquired absence of other specified parts of digestive tract; Z87.891 Personal history of nicotine dependence; Z87.11 Personal history of peptic ulcer disease; Z79.1 Long term (current) use of non-steroidal anti-inflammatories (NSAID); Z79.899 Other long term (current) drug therapy; Z83.3 Family history of diabetes mellitus; Z82.49 Family history of ischemic heart disease and other diseases of the circulatory system
CPT/HCPCS: 97161; 64448; 76942; 85025; 88300; 73560; 27447; C1713; C1776; J2250; J0171; J1100; J0690 ×3; J2405; J3010; J1885; J2795 ×2; J2704; J0735; J1170